=== PATIENT | female | born 1970 | race Caucasian/White ===

== ENCOUNTER 2021-08-22 14:39 | Inpatient (IN) ==
[2021-08-22] MEDS ORDERED: ACETAMINOPHEN 500 MG TAB PO STA (15:32)
--- NOTE | 2021-08-22 16:44 | XRay Report ---
XR chest 2V PA/lateral HISTORY: 50 years-old Female Dyspnea, hypoxia, covid-19 acute shortness of breath with hypoxia. COMPARISON: None TECHNIQUE: Portable AP view of the chest FINDINGS: The cardiac silhouette is upper limits of normal in size. Interstitial coarsening with multifocal phoenix ateral patchy airspace opacities. No pneumothorax or large pleural effusion. No acute fracture. Josselyn cystectomy. IMPRESSION: Multifocal bilateral airspace opacities are suggestive of viral pneumonia. ACT 112: Negative or not required by law. The above report was generated using voice recognition software. It may contain grammatical, syntax o r spelling errors. Electronically signed by: Filemon Bower M.D. 08/22/2021 4:43 PM
[2021-08-22] MEDS ORDERED: SODIUM CHLORIDE 0.9% 1000ML 1,000 ML IV ONE (17:40)
[2021-08-22] MEDS ORDERED: dexAMETHasone**PF** 10 MG/ML VIAL IV ONE (17:47)
[2021-08-22] MEDS ORDERED: BENZONATATE 100 MG CAPSULE PO ONE (17:47)
[2021-08-22] MEDS ORDERED: ONDANSETRON INJ 2 MG/ML 2 ML VIAL IV STA (17:47)
--- NOTE | 2021-08-22 18:02 | Emergency Department Note ---
History of Present Illness General Chief complaint: Shortness of Breath/Dyspnea Stated complaint: covid + as of doc ref low o2 Time Seen by Provider: 08/22/21 17:30 History of Present Illness Maximum Pain Intensity: 7 This 50-year-old female patient presents to the emergency department today at the recommendation of the pharmacy. The patient developed symptoms of COVID-19 last week. She tested positive yesterday. She was seen at the pharmacy today I received monoclonal antibodies, but was referred to the emergency department due to an O2 saturation in the 70%'s. Patient did not receive a COVID-19 vaccine. She has not been taking any medications for her symptoms. She reports nausea, diarrhea, coughing, congestion, runny nose, shortness of breath. She denies chest pain. She did receive monoclonal antibodies at the pharmacy. The patient denies any hemoptysis. She states she has generalized body aches. She reports "I'm really dehydrated. I haven't been able to eat or drink much in 3 days." Allergies Allergy/AdvReac Type Severity Reaction Status Date / Time latex Allergy Intermediate Rash Verified 09/03/18 08:13 Past Med/Surg History Medical History Gestational diabetes Hypertension Surgical History History of bilateral tubal ligation History of cervical cerclage x2 History of section History of cholecystectomy History of colonoscopy History of tooth extraction wisdom teeth Family History (Updated 08/22/21 @ 18:59 by Emily Gallegos PA-C) Father Family history of diabetes mellitus Stroke Social History Smoking Status: Never smoker Second Hand Exposure: Yes (parents smoked); Hx Alcohol Use: No Hx Substance Use: No Preferred Language: Lithuanian Communication Ability: Effective Bevel Face Stoner And Polisher Required: No Beliefs That Will Affect Care: Sikhism Sikhism Beliefs: Mu-Ism Current Living Situation: Spouse and Family Current Living Situation Comment: Lives with and 2 kids Feels Safe at Home: Yes Assistive Devices: Contacts and Glasses Review of Systems A total of 10 systems reviewed and were otherwise negative Physical Exam Vital Signs Vital Signs - 24 hr 08/22/21 14:48 08/22/21 16:40 08/22/21 17:51 Temperature 38.8 C H Temperature Source Temporal Artery Scan Pulse Rate 104 H Respiratory Rate 18 22 25 H Respiratory Effort / Characteristics Labored Respiratory Depth Shallow Respiratory Pattern Tachypnea Blood Pressure 174/69 H Blood Pressure [Right Arm] 165/113 H Blood Pressure Mean 104 Blood Pressure Mean [Right Arm] 130 Blood Pressure Position [Right Arm] Sitting Pulse Oximetry 90 83 L 91 Oxygen Delivery Method Room Air Room Air Nasal Cannula Oxygen Flow Rate 5 Sepsis Recent Fever Within 48 Hours Yes Sepsis New/Unexplained Change in Mental Status N/A Sepsis Action Taken by Nursing Physician Notified 08/22/21 18:00 08/22/21 18:27 08/22/21 19:07 Temperature 38.1 C H Temperature Source Oral Pulse Rate Respiratory Rate 24 Respiratory Effort / Characteristics Respiratory Depth Shallow Respiratory Pattern Blood Pressure Blood Pressure [Right Arm] 198/109 H Blood Pressure Mean Blood Pressure Mean [Right Arm] 138 Blood Pressure Position [Right Arm] Sitting Pulse Oximetry 92 93 Oxygen Delivery Method Nasal Cannula Nasal Cannula Oxygen Flow Rate 5 5 Sepsis Recent Fever Within 48 Hours Sepsis New/Unexplained Change in Mental Status Sepsis Action Taken by Nursing VITALS: Vitals are noted on the nurse's note and reviewed by myself. Patient is febrile, tachycardic, hypertensive. O2 saturation only 87% on 4 L of oxygen via nasal cannula. O2 saturation improved to 91% on 5 L of oxygen via nasal cannula. GENERAL: This is a 50-year-old white female, in no acute distress, nondiaphoretic, well-developed well-nourished. SKIN: The skin was without rashes, erythema, edema, or bruising. There is no tenting of the skin. Capillary refill less than 2 seconds. HEAD: Normocephalic atraumatic. EYES: Conjunctivae without injection, sclerae without icterus. NECK: Supple without nuchal rigidity. No lymphadenopathy. No JVD. HEART: Regular rate and rhythm without murmurs gallops or rubs. LUNGS: Clear to auscultation bilaterally without wheezes, rales or rhonchi. No retractions or accessory muscle use. ABDOMEN: Positive bowel sounds x 4. Soft, nontender, without masses or organomegaly. Tang sign negative. No guarding or rebound tenderness. MUSCULOSKELETAL: No muscle atrophy, erythema, or edema noted. Full range of motion without joint tenderness in all extremities. No tenderness to palpation. Normal gait. Strength 5/5 throughout. NEURO: Patient was alert and oriented to person place and time. No focal neurological deficits. Course Course Due to high volume, high acuity in the emergency department in the setting of the COVID-19 pandemic, critical pathways initiated. Patient was placed on oxygen by nursing staff while in the waiting room awaiting a bed. Chest x-ray performed reviewed by myself and radiologist as noted. The patient was seen and evaluated as above. Patient is now on 5 L of oxygen via nasal cannula. An order was placed for continuous cardiac monitoring. The monitor shows a sinus tachycardia rhythm at a rate of 102 bpm. IV access obtained, labs drawn. Patient hydrated with IV fluids. She was medicated with IV Dexamethasone, zofran, benzonatate. Labs reviewed by myself. I discussed the findings and recommendation for admission with the patient at bedside. I discussed case with the trading manager I discussed the case with the [facility] hospitalist, Emily Gallegos PA-C. They did agree to see and evaluate the patient. Administered Medications Discontinued Medications Acetaminophen (Acetaminophen 500 Mg Tab) 1,000 mg PO NOW STA Stop: 08/22/21 15:33 Last Admin: 08/22/21 18:26 Dose: 1,000 mg Documented by: [id number] Benzonatate (Benzonatate 100 Mg Capsule) 200 mg PO NOW ONE Stop: 08/22/21 17:48 Last Admin: 08/22/21 18:11 Dose: 200 mg Documented by: [id number] Dexamethasone Sodium Phosphate (DexamethasonePf 10 Mg/Ml Vial) 6 mg IV NOW ONE Stop: 08/22/21 17:48 Last Admin: 08/22/21 18:10 Dose: 6 mg Documented by: [id number] Sodium Chloride (Nss 1000ml) 1,000 mls @ 999 mls/hr IV .Q1H1M ONE Stop: 08/22/21 18:40 Last Admin: 08/22/21 18:11 Dose: 999 mls/hr Documented by: [id number] Ondansetron HCl (Ondansetron Inj 2 Mg/Ml 2 Ml Vial) 4 mg IV NOW STA Stop: 08/22/21 17:48 Last Admin: 08/22/21 18:11 Dose: 4 mg Documented by: [id number] Medical Decision Making Differential Diagnosis COVID-19, reactive airway disease, pneumonia, pneumothorax, COPD, CHF, infections, cardiac ischemia, pulmonary embolism, musculoskeletal, gastro intestinal, as well as other pathologies. Medical Records Attestation: I reviewed the patient's medical records. Home Medications Current Medication List: was personally reviewed by me Laboratory Data Attestation: I reviewed the patient's lab results. No leukocytosis, anemia, thrombocytopenia. Renal function and electrolytes w ithout significant abnormality. Transaminases elevated. Procalcitonin 0.12. Result diagrams: 08/22/21 18:10 08/22/21 18:10 Lab Results 08/22/21 08/22/21 08/22/21 Range/Units 18:00 18:10 18:10 WBC 5.81 (4.8-10.8) K/uL RBC 4.66 (4.2-5.4) M/uL Hgb 14.2 (12.0-16.0) g/dL Hct 42.2 (37-47) % MCV 90.6 (80-100) fL MCH 30.5 (25-34) pg MCHC 33.6 (32-36) g/dL RDW Std Deviation 43.2 (36.4-46.3) fL RDW Coeff of Amanda 13.1 (11.5-14.5) % Plt Count 207 (130-400) K/uL MPV 9.9 (7.4-10.4) fL Immature Gran % (Auto) 0.2 % Neut % (Auto) 71.6 % Lymph % (Auto) 21.3 % [place] % (Auto) 6.7 % Eos % (Auto) 0.0 % Baso % (Auto) 0.2 % Neut # (Auto) 4.16 (1.4-6.5) K/uL Lymph # (Auto) 1.24 (1.2-3.4) K/uL [place] # (Auto) 0.39 (0.11-0.59) K/uL Eos # (Auto) 0.00 (0-0.5) K/uL Baso # (Auto) 0.01 (0-0.2) K/uL Immature Gran # (Auto) 0.01 (0.00-0.02) K/uL D-Dimer 680 H* (0-500) ug/L FEU Sodium 133 L (136-145) mmol/L Potassium 3.3 L (3.5-5.1) mmol/L Chloride 99 (98-107) mmol/L Carbon Dioxide 26 (21-32) mmol/L Anion Gap 8.0 (3-11) BUN 8 (7-18) mg/dl Creatinine 0.66 (0.6-1.2) mg/dl Est Cr Clr Drug Dosing 125.4 ml/min Est GFR ( Amer) 120.2 ml/min Est GFR (Non-Af Amer) 103.7 ml/min BUN/Creatinine Ratio 12.5 (10-20) Glucose 139 H (70-99) mg/dl Calcium 9.2 (8.5-10.1) mg/dl Magnesium 1.7 L (1.8-2.4) mg/dl Total Bilirubin 0.3 (0.2-1) mg/dl AST 154 H (15-37) U/L ALT 110 H (12-78) Alkaline Phosphatase 66 (45-117) U/L Total Protein 8.2 (6.4-8.2) gm/dl Albumin 3.1 L (3.4-5.0) gm/dl Globulin 5.1 H (2.5-4.0) gm/dl Albumin/Globulin Ratio 0.6 L (0.9-2) Procalcitonin (0-0.5) ng/ml 08/22/21 Range/Units 18:10 WBC (4.8-10.8) K/uL RBC (4.2-5.4) M/uL Hgb (12.0-16.0) g/dL Hct (37-47) % MCV (80-100) fL MCH (25-34) pg MCHC (32-36) g/dL RDW Std Deviation (36.4-46.3) fL RDW Coeff of Amanda (11.5-14.5) % Plt Count (130-400) K/uL MPV (7.4-10.4) fL Immature Gran % (Auto) % Neut % (Auto) % Lymph % (Auto) % [place] % (Auto) % Eos % (Auto) % Baso % (Auto) % Neut # (Auto) (1.4-6.5) K/uL Lymph # (Auto) (1.2-3.4) K/uL [place] # (Auto) (0.11-0.59) K/uL Eos # (Auto) (0-0.5) K/uL Baso # (Auto) (0-0.2) K/uL Immature Gran # (Auto) (0.00-0.02) K/uL D-Dimer (0-500) ug/L FEU Sodium (136-145) mmol/L Potassium (3.5-5.1) mmol/L Chloride (98-107) mmol/L Carbon Dioxide (21-32) mmol/L Anion Gap (3-11) BUN (7-18) mg/dl Creatinine (0.6-1.2) mg/dl Est Cr Clr Drug Dosing ml/min Est GFR ( Amer) ml/min Est GFR (Non-Af Amer) ml/min BUN/Creatinine Ratio (10-20) Glucose (70-99) mg/dl Calcium (8.5-10.1) mg/dl Magnesium (1.8-2.4) mg/dl Total Bilirubin (0.2-1) mg/dl AST (15-37) U/L ALT (12-78) Alkaline Phosphatase (45-117) U/L Total Protein (6.4-8.2) gm/dl Albumin (3.4-5.0) gm/dl Globulin (2.5-4.0) gm/dl Albumin/Globulin Ratio (0.9-2) Procalcitonin 0.12 (0-0.5) ng/ml Imaging Data Radiologist's Impression: Chest X-Ray 08/22/21 15:29 XR chest 2V PA/lateral HISTORY: 50 years-old Female Dyspnea, hypoxia, covid-19 acute shortness of breath with hypoxia. COMPARISON: None TECHNIQUE: Portable AP view of the chest FINDINGS: The cardiac silhouette is upper limits of normal in size. Interstitial coarsening with multifocal bilateral patchy airspace opacities. No pneumothorax or large pleural effusion. No acute fracture. Cholecystectomy. IMPRESSION: Multifocal bilateral airspace opacities are suggestive of viral pneumonia. ACT 112: Negative or not required by law. The above report was generated using voice recognition software. It may contain grammatical, syntax or spelling errors. Electronically signed by: Filemon Bower M.D. 08/22/2021 4:43 PM ECG Data Attestation: I personally reviewed and interpreted this ECG as follows: Indication: + SOB/dyspnea Rate (beats per minute): 98 Rhythm: + normal sinus ECG [place]: + Normal ECG ST segments: no ST depression, no ST elevation or no T-wave inversions Comparison ECG Date: no prior available Blood Pressure Blood Pressure Findings: Elevated blood pressure Blood Pressure Disposition: further management by hospitalist MDM Narrative This 50-year-old female patient presents to the emergency department today at the recommendation of the pharmacist after receiving COVID-19 monoclonal antibodies. The patient has been symptomatic since last . She tested positive for COVID-19. She has not vaccinated. She was found to be hypoxic on room air. She notes O2 saturation in the 70s at the pharmacy. O2 saturation in the 80s on room air upon arrival to the ED. Patient did require about 5 L of oxygen to keep her O2 saturation on above 90% while in the emergency department. She will be admitted to the [facility] service. Please see their dictation regarding ongoing management and care of this patient. The chart was completed utilizing [employer] Speech voice recognition software. Grammatical errors, random word insertions, pronoun errors, and incomplete se ntences are an occasional consequence of this system due to software limitations, ambient noise, and hardware issues. Any formal questions or concerns about the content, text, or information contained within the body of this dictation should be directly addressed to the provider for clarification. Impression & Plan COVID-19, Hypoxia, Nausea, Tachycardia, Hypertension Discharge Plan Visit Data Chief Complaint: Shortness of Breath/Dyspnea Stated Complaint: covid + as of doc ref low o2 ED Provider: Percy Montanez ED Midlevel Provider: Becky Lino Discharge Problem: COVID-19, Hypoxia, Nausea, Tachycardia, Hypertension Patient Disposition: Admitted As Inpatient Forms Stand Alone Forms: My [facility] Referrals Referrals: Alivia Courtney DO [Primary Care Provider] -
[2021-08-22] MEDS ORDERED: ACETAMINOPHEN 1000 MG/100 ML IV IV ONE (18:20)
[2021-08-22] MEDS ORDERED: ACETAMINOPHEN 500 MG TAB ONE (18:24)
[2021-08-22 18:25] LABS: Hematocrit (blood only) 42.2 % (37-47); Hemoglobin 14.2 g/dL (12.0-16.0); Mean Corpuscular Hemoglobin 30.5 pg (25-34); Mean Corpuscular Hgb Conc 33.6 g/dL (32-36); Mean Corpuscular Volume 90.6 fL (80-100); Mean Platelet Volume 9.9 fL (7.4-10.4); Platelet Count 207 K/uL (130-400); RDW Coefficient of Variation 13.1 % (11.5-14.5); RDW Standard Deviation 43.2 fL (36.4-46.3); Red Blood Count 4.66 M/uL (4.2-5.4); White Blood Count 5.81 K/uL (4.8-10.8)
--- NOTE | 2021-08-22 18:26 | History & Physical Report ---
Date of Service August 22, 2021 Assessment & Plan (1) Hypoxia: (2) COVID-19: Plan: This is a 50yo F with a PMH of obesity presents from the pharmacy after being found to be hypoxic in the setting of covid (positive covid test yesterday, 08/21/21). Symptomatic for 5 days, received monoclonal antibodies at pharmacy today, found to be hypoxic in 70s and directed to ED for further evaluation CXR with Multifocal bilateral airspace opacities are suggestive of viral pneumonia. Febrile at 38.1 C, saturating at 93% on 5 L NC, d-dimer 680, procal WNL. AST 154, ALT 110 Will obtain ABG, chest CTA Covid isolation precautions Continue IV dexamethasone, initiating remdesivir Monitor daily CMP, CBC, continue supplemental O2 (3) Hypokalemia: (4) Hypomagnesemia: Plan: In setting of GI losses. Replacing. Repeat labs in AM (5) Nausea and vomiting: Plan: In setting of covid 19. Continue antiemetics PRN, IV fluid resuscitation, clear liquid diet and advance as tolerated (6) Hypertension: Plan: Not on home medications. Repeating manual BP, will add antihypertensives as needed DVT Ppx: SQ lovenox Code status: FULL PCP: Fidelia Courtney Dispo: Admit to PCU Patient seen in collaboration with Dr. King. Please see addendum. History of Present Illness Chief Complaint: covid, hypoxia Primary Care Provider: Alivia Courtney, DO This is a 50yo F with a PMH of obesity presents from the pharmacy after being found to be hypoxic in the setting of covid (positive covid test yesterday, 08/21/21). was diagnosed with Covid last week and patient has been symptomatic for 5 days, starting with nausea, vomiting and diarrhea. Also endorses fever (tmax 101 F), chills, body aches, cough, congestion, runny nose and shortness of breath. Has had difficulty keeping anything down for 3 days despite trying to drink Gatorade. Did receive monoclonal antibodies at the pharmacy today. Oxygen saturation was in the 70s and patient was sent to ED for further evaluation. Does not take any home medications. Did not receive Covid vaccine. Denies lightheadedness, chest pain, palpitations, dysuria, diarrhea or constipation. Allergies Allergy/AdvReac Type Severity Reaction Status Date / Time latex Allergy Intermediate Rash Verified 08/22/21 19:24 Home Medications Medication Instructions Recorded Confirmed Type No Known Home Medications 08/22/21 08/22/21 History Past Med/Surg History Medical History Gestational diabetes Hypertension Surgical History History of bilateral tubal ligation History of cervical cerclage x2 History of section History of cholecystectomy History of colonoscopy History of tooth extraction wisdom teeth Family History (Updated 08/22/21 @ 18:59 by Emily Gallegos PA-C) Father Family history of diabetes mellitus Stroke Social History Smoking Status: Never smoker Second Hand Exposure: Yes (parents smoked); Hx Alcohol Use: No Hx Substance Use: No Preferred Language: Kosovan Communication Ability: Effective Emergency Services Dispatcher Required: No Beliefs That Will Affect Care: Sikh Sikh Beliefs: Alevism Current Living Situation: Spouse and Family Current Living Situation Comment: Lives with and 2 kids Feels Safe at Home: Yes Assistive Devices: Contacts and Glasses Review of Systems Review of Systems: At least ten systems reviewed and negative except as noted in the HPI. Physical Exam Physical Exam: Please see Dr. King's addendum for physical exam. Results & Data Results & Data ([facility]) Vital Signs (Past 12 Hours) Vital Signs Temp Pulse Resp BP BP Pulse Ox 08/22/21 18:00 24 198/109 H 92 08/22/21 17:51 25 H 91 08/22/21 16:40 22 165/113 H 83 L 08/22/21 14:48 38.8 C H 104 H 18 174/69 H 90 Laboratory Results Short CBC 08/22/21 Range/Units 18:10 WBC 5.81 (4.8-10.8) K/uL Hgb 14.2 (12.0-16.0) g/dL Hct 42.2 (37-47) % Plt Count 207 (130-400) K/uL BMP 08/22/21 18:10 Sodium 133 L Potassium 3.3 L Chloride 99 Carbon Dioxide 26 BUN 8 Creatinine 0.66 Glucose 139 H Calcium 9.2 Liver Function 08/22/21 Range/Units 18:10 Total Bilirubin 0.3 (0.2-1) mg/dl AST 154 H (15-37) U/L ALT 110 H (12-78) Alkaline Phosphatase 66 (45-117) U/L Albumin 3.1 L (3.4-5.0) gm/dl Diagnostic Findings Chest X-Ray 08/22/21 15:29 XR chest 2V PA/lateral HISTORY: 50 years-old Female Dyspnea, hypoxia, covid-19 acute shortness of breath with hypoxia. COMPARISON: None TECHNIQUE: Portable AP view of the chest FINDINGS: The cardiac silhouette is upper limits of normal in size. Interstitial coarsening with multifocal bilateral patchy airspace opacities. No pneumothorax or large pleural effusion. No acute fracture. Cholecystectomy. IMPRESSION: Multifocal bilateral airspace opacities are suggestive of viral pneumonia. ACT 112: Negative or not required by law. The above report was generated using voice recognition software. It may contain grammatical, syntax or spelling errors. Electronically signed by: Filemon Bower M.D. 08/22/2021 4:43 PM Supervising Physician Co-Signing Physician Notes Pt is a 50 y/o F with hx of obesity and elevated BP admitted for COVID pneumonia with hypoxia -pt received monoclonal antibody today @ [facility] and she was sent to the ER for hypoxia Exam: -Mild respiratory distress, NC in place -Lungs: B/L diffuse rales -Cardiac: normal S1/S2, no murmur -Abd: ND, NT, soft -MSk: no LE edema -Psych: AAOx3 and normal Affect A/P: COVID pneumonia with hypoxia: -Tested positive for COVID on: 08/21/21 - symptoms onset on: 08/17/21 -CTA chest pending & d-dimer is elevated -Procal: neg -normal crcl and LFTs are elevated --- will trend CMP -will start the pt on Remdesivir and Dexamethasone -continue on oxygen supplement right now -encourage frequent change of position (including proning) -daily CMP and CRP - repleted electrolytes Agree with A/P by Emily Gallegos PA-C
[2021-08-22 18:43] LABS: Basophils # (auto) 0.01 K/uL (0-0.2); Basophils % (auto) 0.2 %; Immature Granulocytes # (auto) 0.01 K/uL (0.00-0.02); Immature Granulocytes % (auto) 0.2 %; Lymphocytes # (auto) 1.24 K/uL (1.2-3.4); Lymphocytes % (auto) 21.3 %; Monocytes # (auto) 0.39 K/uL (0.11-0.59); Monocytes % (auto) 6.7 %; Neutrophils # (auto) 4.16 K/uL (1.4-6.5); Neutrophils % (auto) 71.6 %
[2021-08-22 18:47] LABS: D Dimer 680 ug/L FEU (0-500)
[2021-08-22] MEDS ORDERED: REMDESIVIR 200 MG in SODIUM CHLORIDE 0.9% 210 ML IV STA (18:48)
[2021-08-22 18:54] LABS: Albumin Level 3.1 gm/dl (3.4-5.0); BUN Creatinine Ratio 12.5 (10-20); Calcium 9.2 mg/dl (8.5-10.1); Creatinine Clr Calc Pharmacy 125.4 ml/min; Est GFR (African American) 120.2 ml/min; Est GFR (Non-African American) 103.7 ml/min; Magnesium 1.7 mg/dl (1.8-2.4); Potassium 3.3 mmol/L (3.5-5.1)
[2021-08-22 18:56] LABS: Albumin Globulin Ratio 0.6 (0.9-2); Bilirubin,Total 0.3 mg/dl (0.2-1); Globulin 5.1 gm/dl (2.5-4.0); Total Protein 8.2 gm/dl (6.4-8.2)
[2021-08-22] MEDS ORDERED: MAGNESIUM SULFATE / D5W 1 GM/100 ML BAG IV ONE (19:00)
[2021-08-22 19:10] LABS: Base Excess ABG 2.2 mEq/L (-9-1.8); HCO3 ABG 25 mmol/L (19-24); Oxygen Saturation ABG 95.5 % (90-95); PCO2 ABG 35 mmHg (35-46); PO2 ABG 73 mmHg (80-95); pH ABG 7.48 (7.35-7.45)
[2021-08-22 19:12] LABS: Allen Test POS (Pos)
[2021-08-22] MEDS ORDERED: POTASSIUM CHLORIDE 40 MEQ in SODIUM CHLORIDE 0.9% 1000ML 1,000 ML IV SCH (19:15)
[2021-08-22 20:06] LABS: Influenza A virus by PCR Negative (Neg); Influenza B virus by PCR Negative (Neg); RSV by PCR Negative (Neg)
[2021-08-22 20:09] LABS: SARS CoV2 RNA(COVID-19) InHosp POSITIVE (Negative)
[2021-08-22] MEDS ORDERED: OPTIRAY 320 125ml IV ONE (20:55)
[2021-08-22] MEDS ORDERED: ONDANSETRON INJ 2 MG/ML 2 ML VIAL IV PRN (21:43)
[2021-08-22] MEDS ORDERED: POLYETHYLENE (MIRALAX) 17 GM PACK PO PRN (21:43)
[2021-08-22 23:03] LABS: Appearance Urine Clear (Clear); Bacteria Urine Automated Negative (Negative); Bilirubin Urine Negative (Negative); Blood Urine 2+ (Negative); Cast Urine Automated 0 /lpf (0-5); Color Urine Yellow; Glucose Urine UA 1+ (Negative); Ketones Urine 2+ (Negative); Leukocyte Esterase Urine Negative (Negative); Nitrite Urine Negative (Negative); Protein Urine Negative (Negative); RBC Urine Automated 0-4 /hpf (0-4); Specific Gravity Urine > 1.045 (1.000-1.030); Urobilinogen Urine Negative (Negative)
[2021-08-22] MEDS ORDERED: ONDANSETRON INJ 2 MG/ML 2 ML VIAL ONE (23:12)
[2021-08-22] MEDS: SODIUM CHLORIDE 0.9% 10ML FLUSH IV SCH (23:19)
[2021-08-23] MEDS: ENOXAPARIN INJ 40 MG/0.4 ML SYR SQ SCH ×2 (00:11→21:44)
[2021-08-23 05:33] LABS: Hematocrit (blood only) 39.4 % (37-47); Mean Corpuscular Hemoglobin 30.2 pg (25-34); Mean Corpuscular Volume 91.6 fL (80-100); Mean Platelet Volume 9.9 fL (7.4-10.4); Platelet Count 207 K/uL (130-400); RDW Coefficient of Variation 13.2 % (11.5-14.5); RDW Standard Deviation 44.4 fL (36.4-46.3); White Blood Count 4.82 K/uL (4.8-10.8)
[2021-08-23 06:24] LABS: Albumin Globulin Ratio 0.5 (0.9-2); Albumin Level 2.4 gm/dl (3.4-5.0); BUN Creatinine Ratio 14.6 (10-20); Bilirubin,Total 0.2 mg/dl (0.2-1); Calcium 8.2 mg/dl (8.5-10.1); Est GFR (African American) 126.2 ml/min; Est GFR (Non-African American) 108.9 ml/min; Globulin 4.7 gm/dl (2.5-4.0); Total Protein 7.1 gm/dl (6.4-8.2)
--- NOTE | 2021-08-23 08:05 | CT Scan Report ---
CT angio chest PE protocol CT DOSE: 702.04 mGy.cm HISTORY: 50 years-old Female with PE. Acute shortness of breath. COVID Positive. TECHNIQUE: Multiple CTA images of the chest were obtained after the intravenous administration of 120 ml Optiray. Coronal and sagittal MIPS were obtained from the axial data set and were submitted for review. All measurements were obtained according to NASCET criteria. A dose lowering technique was u tilized adhering to the principles of ALARA. COMPARISON: Chest radiographs of same day FINDINGS: CTA: The heart is normal in size without pericardial effusion. Mild coronary artery calcifications. No tho racic aortic aneurysm or dissection. Unremarkable pulmonary artery. No pulmonary emboli. CT CHEST: 10 mm hypodense nodule of the inferior right thyroid lobe medially. No pathologically enlarged lymph nodes. Mildly prominent mediastinal and hilar lymph nodes are likely reactive. The inferior lung base s are only partially imaged. There is no pneumothorax or pleural effusion. Multifocal bilateral inter mixed groundglass and consolidative opacities are noted within all lobes bilaterally. Central airways are patent. Hepatic steatosis. Tiny hiatal hernia. Unremarkable soft tissues. No acute fracture. Left shoulder ro tator cuff calcific tendinosis. IMPRESSION: 1. No pulmonary emboli. 2. Extensive multifocal viral pneumonia. 3. Mild coronary artery calcifications. 4. Hepatic steatosis. ACT 112: Negative or not required by law. The above report was generated using voice recognition software. It may contain grammatical, syntax o r spelling errors. Electronically signed by: Filemon Bower M.D. 08/23/2021 8:04 AM
[2021-08-23] MEDS: dexAMETHasone 6 MG in SYRINGE 0 ML IV SCH (10:17)
--- NOTE | 2021-08-23 15:43 | Electrocardiogram Report ---
Test Reason : Blood Pressure : / mmHG Vent. Rate : 098 BPM Atrial Rate : 098 BPM P-R Int : 132 ms QRS Dur : 082 ms QT Int : 350 ms P-R-T Axes : -03 005 019 degrees QTc Int : 446 ms Poor data quality, interpretation may be adversely affected Normal sinus rhythm Normal ECG No previous ECGs available Confirmed by Facundo Pope ([id number]) on 08/23/2021 3:42:30 PM Referred By: REFERRED SELF Confirmed By:Facundo Pope
--- NOTE | 2021-08-23 19:31 | Hospitalist Progress Note ---
Date of Service August 23, 2021 Assessment & Plan (1) Hypoxia: (2) COVID-19: Plan: This is a 50yo F with a PMH of obesity presents from the pharmacy after being found to be hypoxic in the setting of covid (positive covid test 08/21/21). Symptomatic for 5 days [employer]ER, received monoclonal antibodies at pharmacy on the day of arrival, found to be hypoxic in 70s and directed to ED for further evaluation CXR with Multifocal bilateral airspace opacities are suggestive of viral pneumonia. At presentation, febrile at 38.1 C, saturating at 93% on 5 L NC, d-dimer 680, procal WNL. AST 154, ALT 110 CTA chest negative for pulmonary embolism. Covid isolation precautions Continue IV dexamethasone 08/22, continue remdesivir 10/23 Monitor daily CMP, CBC, continue supplemental O2 (3) Hypokalemia: (4) Hypomagnesemia: Plan: In setting of GI losses. Monitor and replete as appropriate (5) Nausea and vomiting: Plan: In setting of covid 19. Continue antiemetics PRN, IV fluid resuscitation, clear liquid diet and advance as tolerated (6) Hypertension: Plan: Not on home medications. Continue with antihypertensives as needed DVT Ppx: SQ lovenox Code status: FULL PCP: Fidelia Courtney Dispo: Admit to PCU Admission and Anticipated Discharge Date Admission Date: August 22, 2021 Subjective Patient was standing beside her bed, on 14 liters oxygen via oxygen mask. NAD, no new acute events overnight. Patient reports eating better but diarrhea is same. Patient was working in her laptop prior to my arrival. Patient denies fever/chills/chest pain/palpitation/increased shortness of breath/other review of symptoms. Physical Exam Physical Exam: GENERAL: Alert and oriented x3. NAD, on 14 L via oxygen mask HEENT: No pallor, no icterus. Pupils equal, round and reactive to light. Oral mucosa moist. NECK: No JVD, no neck masses. HEART: S1 and S2 heard. Regular rate and rhythm. No murmur, no gallop. RESPIRATORY SYSTEM: Normal AP diameter. No accessory muscle use. No wheezing, bilateral crackles and decreased breath sounds appreciated ABDOMEN: Soft, bowel sounds present, nontender, no distention. CENTRAL NERVOUS SYSTEM: No facial droop. Speech is clear. Obeys simple commands. Moves extremities. EXTREMITIES: No edema, no erythema seen. Results & Data Results & Data ([facility]) Vital Signs (Past 12 Hours) Vital Signs Pulse Resp Pulse Ox 08/23/21 08:30 80 27 H 86 L 08/23/21 08:15 82 29 H 85 L 08/23/21 08:00 84 27 H 92 08/23/21 07:45 85 21 90 08/23/21 07:30 79 20 91
[2021-08-23] MEDS: REMDESIVIR 100 MG in SODIUM CHLORIDE 0.9% 230 ML IV SCH (19:56)
[2021-08-23] MEDS ORDERED: LOPERAMIDE HCL 2 MG CAP PO STA (20:25)
[2021-08-23] MEDS: SODIUM CHLORIDE 0.9% 10ML FLUSH IV SCH (20:56)
[2021-08-24] MEDS: dexAMETHasone 6 MG in SYRINGE 0 ML IV SCH (08:01)
[2021-08-24 08:11] LABS: Hematocrit (blood only) 40.4 % (37-47); Hemoglobin 13.1 g/dL (12.0-16.0); Mean Corpuscular Hemoglobin 30.5 pg (25-34); Mean Corpuscular Hgb Conc 32.4 g/dL (32-36); Mean Corpuscular Volume 94.2 fL (80-100); Mean Platelet Volume 10.1 fL (7.4-10.4); Platelet Count 278 K/uL (130-400); RDW Coefficient of Variation 13.3 % (11.5-14.5); RDW Standard Deviation 45.9 fL (36.4-46.3); Red Blood Count 4.29 M/uL (4.2-5.4)
[2021-08-24 08:35] LABS: Albumin Level 2.7 gm/dl (3.4-5.0); BUN Creatinine Ratio 24.4 (10-20); C Reactive Protein 5.63 mg/dl (0-0.29); Calcium 8.3 mg/dl (8.5-10.1); Est GFR (Non-African American) 112.2 ml/min; Potassium 3.5 mmol/L (3.5-5.1)
[2021-08-24 08:37] LABS: Albumin Globulin Ratio 0.6 (0.9-2); Bilirubin,Total 0.6 mg/dl (0.2-1); Globulin 4.5 gm/dl (2.5-4.0); Total Protein 7.2 gm/dl (6.4-8.2)
--- NOTE | 2021-08-24 08:55 | XRay Report ---
XR chest 1V portable CLINICAL HISTORY: increasing O2 requirement. TECHNIQUE: Single frontal radiograph of the chest was obtained. Comparison: Comparison is made to chest one view 08/22/2021 FINDINGS: No lines and tubes are seen. The cardiomediastinal silhouette is normal. Multifocal airspace opacitie s are seen. No evidence of pleural effusion or pneumothorax. IMPRESSION: Multifocal airspace opacities may represent atelectasis, pneumonia, and/or aspiration. ACT 112: Negative or not required by law. Electronically signed by: Robert House M.D. 08/24/2021 8:53 AM
[2021-08-24] MEDS ORDERED: POTASSIUM CHLORIDE CRTAB 20 MEQ TABCR PO STA (09:32)
[2021-08-24] MEDS ORDERED: FUROSEMIDE INJ 20 MG/2 ML VIAL IV ONE (09:32)
--- NOTE | 2021-08-24 15:28 | Hospitalist Progress Note ---
Date of Service August 24, 2021 Assessment & Plan (1) Hypoxia: (2) COVID-19: Plan: This is a 50yo F with a PMH of obesity presents from the pharmacy after being found to be hypoxic in the setting of covid (positive covid test 08/21/21). 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 At presentation, febrile at 38.1 C, saturating at 93% on 5 L NC, d-dimer 680, procal WNL. AST 154, ALT 110. Admitting procal negative CTA chest negative for pulmonary embolism. Covid isolation precautions BNP 08/24 --> 225, strict Is and O2, lasix as needed, one dose of lasix today 08/24 CRP 5.63 08/24 CXR worsening compared to admitting CXR. Continue IV dexamethasone 08/22, continue remdesivir 10/23 , incentive/flutter valve and proning Monitor daily CMP, CBC, continue supplemental O2 08/24 AM: Upon discussion about further interventions like CPAP/BPAP/possible i ntubation, patient denied to discuss and will discuss only when the need arises so. Patient made aware that she is already at maximal level of high flow oxygen we can give, she says she feels fine and wants to make sure that she will do better with high flow as of now. It is clear from discussion that definitely patient would like to continue those intervention if needed but did not say so explicitly. Patient has said similarly to the RN taking care of her as well. I asked patient if she wants me to call any of her family members to update, patient was reluctant and said to wait for now. ---> Patient changed her mind during the evening and asked to update her [id number] Dr. Taveras [[facility] --- [phone]]. I called Dr. Taveras, updated him about her status and plan of care. Answered all his questions. He voiced understanding and was agreeable to plan of care. (3) Hypokalemia: (4) Hypomagnesemia: Plan: In setting of GI losses. Monitor and replete as appropriate (5) Nausea and vomiting: Plan: In setting of covid 19. Continue antiemetics PRN, IV fluid resuscitation, clear liquid diet and advance as tolerated Improving (6) Hypertension: Plan: Not on home medications. Continue with antihypertensives as needed DVT Ppx: SQ lovenox Code status: FULL PCP: Fidelia Courtney Dispo: Admit to PCU Admission and Anticipated Discharge Date Admission Date: August 22, 2021 Subjective Patient was standing beside her bed, on 60L O2 HFNC. NAD, overnight patient desaturated while being moved to Covid unit requiring 60 L high flow nasal cannula. Patient reports eating better but diarrhea improving (pt had taken loperamide yesterday evening). Patient denies fever/chills/chest pain/palpitation/increased shortness of breath/other review of symptoms. Physical Exam Physical Exam: GENERAL: Alert and oriented x3. NAD, on 60L via HFNC HEENT: No pallor, no icterus. Pupils equal, round and reactive to light. Oral mucosa moist. NECK: No JVD, no neck masses. HEART: S1 and S2 heard. Regular rate and rhythm. No murmur, no gallop. RESPIRATORY SYSTEM: Normal AP diameter. No accessory muscle use. No wheezing, bilateral crackles and decreased breath sounds appreciated ABDOMEN: Soft, bowel sounds present, nontender, no distention. CENTRAL NERVOUS SYSTEM: No facial droop. Speech is clear. Obeys simple commands. Moves extremities. EXTREMITIES: No edema, no erythema seen. Results & Data Results & Data ([facility]) Vital Signs (Past 12 Hours) Vital Signs Temp Pulse Pulse Resp BP Pulse Ox 08/24/21 15:15 36.7 C 76 18 144/87 H 92 08/24/21 15:07 91 H 20 91 08/24/21 11:40 92 H 18 91 08/24/21 11:28 37.2 C 87 129/87 08/24/21 08:00 85 08/24/21 07:54 86 18 93 08/24/21 07:10 36.9 C 81 20 138/80 95 08/24/21 03:33 36.7 C 83 18 148/96 H 90
--- NOTE | 2021-08-24 19:02 | Pulmonary Consultation ---
Date of Consultation August 24, 2021 Assessment & Plan (1) COVID-19: (2) Acute respiratory failure with hypoxia: (3) DVT prophylaxis: Attending: Dr. Solomon Impression: Is a 50-year-old female that is nonvaccinated. She has symptoms starting 7 days ago. She is receiving dexamethasone as well as remdesivir. She is not a candidate for baricitinib or tocilizumab as her CRP is only 5.63. Patient is on high flow supplemental oxygen at 60 L/min and FiO2 of 100% with no distress with the supplemental oxygen. proBNP is 255. She has no evidence of hypercapnia on ABG or serum CO2. Recommendations: 1. COVID-19: * Chest x-ray with multifocal opacities consistent with viral pneumonia * CTA chest with no evidence of pulmonary embolus * Patient started on dexamethasone as well as remdesivir. * Patient reportedly had "monoclonal antibodies" at a homeopathic pharmacy in [facility]. These were administered by injection of the arms and abdomen * Patient resistant to endotracheal intubation and mechanical ventilation * If patient should decline, will need to have further discussion regarding progression of care to include mechanical ventilation * Continue to encourage self proning * No history of pulmonary disease including asthma or other pulmonary issues. 2. Acute respiratory failure with hypoxia: * This appears to be related to COVID-19/ARDS * No evidence of hypercapnia. Would avoid CPAP or BiPAP if possible. Continue with high flow supplemental oxygen * No cough or sputum production. * Procalcitonin negative is 0.12 * No indication at this time for antibiotics * Patient has not been cultured. If she does develop fever, consider blood cultures x2, sputum culture, as well as urine culture. 3. DVT prophylaxis: * CTA of the chest negative for PE * No asymmetrical edema * Continue with enoxaparin 40 mg subcutaneously daily Thank you very much for including us in the care of this patient. We will continue to follow at this time. Please refer to Dr. Solomon's addendum for further recommendations and corrections. History of Present Illness Reason for Consultation: Covid19 with acute respiratory failure with hypoxia and no evidence of hypercapnia. Attending Physician: Brandon Matias MD History of Present Illness Attending: Dr. Solomon This is a 50-year-old female with no significant past medical history or home medications. The patient states that she began with symptoms 08/16/2021. She is unvaccinated. She went to a pharmacy in [facility] and received "monoclonal antibody" injections in the arms and abdomen. At the pharmacy, she was noted to have SaO2 of 70%. She was advised to go to the nearest emergency department. She did not want to go to [facility] so they drove back to [place] where she was evaluated at [facility] and admitted. She was placed on high flow oxygen and continues to require supplemental oxygen at high doses. She is afebrile. She states that she has no nausea or vomiting. She has no back pain. She denies any diarrhea. She still has taste and smell. She is confident that she will improve without further intervention. We did have long discussion about progression of COVID-19 and acute respiratory distress syndrome. She is aware that if she does not improve that we do not have any other medical options other than mechanical ventilation. At this time she elects not to be ventilated although she is listed as a full code. I did discuss CODE STATUS with her and at this time she would like to think further about progression of treatment. She is and lives at home with her . The patient reports that she is not vaccinated. She states that she has no past tobacco abuse history. Allergies Allergy/AdvReac Type Severity Reaction Status Date / Time latex Allergy Intermediate Rash Verified 08/22/21 19:24 Home Medications Medication Instructions Recorded Confirmed Type No Known Home Medications 08/22/21 08/22/21 History Patient History Medical History Gestational diabetes Hypertension Surgical History History of bilateral tubal ligation History of cervical cerclage x2 History of section History of cholecystectomy History of colonoscopy History of tooth extraction wisdom teeth Family History Father Family history of diabetes mellitus Stroke Social History Smoking Status: Never smoker Second Hand Exposure: Yes (parents smoked); Hx Alcohol Use: No Hx Substance Use: No Preferred Language: Bengali Communication Ability: Effective Operations Lead Required: No 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 No conversational dyspnea. Morbidly obese. EYES: No icterus, gaze conjugate NOSE: No evidence of epistaxis. High flow nasal cannula in place and secure MOUTH: No lesions or candidiasis. Mucosa is moist NECK: Supple LUNGS: Decreased breath sounds bilaterally. Patient does have evidence of rales and some scattered bronchospasm. HEART: Regular, rate controlled. No appreciated no ectopy ABDOMEN: Soft, NT, ND, BS Present EXTREMITIES: No LE edema, pedal pulses intact NEURO: A&OX3. No appreciable neurological deficit Results & Data Results & Data ([facility]) Vital Signs (Past 12 Hours) Vital Signs Temp Pulse Pulse Resp BP Pulse Ox 08/24/21 15:15 36.7 C 76 18 144/87 H 92 08/24/21 15:07 91 H 20 91 08/24/21 11:40 92 H 18 91 08/24/21 11:28 37.2 C 87 129/87 08/24/21 08:00 85 08/24/21 07:54 86 18 93 08/24/21 07:10 36.9 C 81 20 138/80 95 Critical Care Results & Data Vital Signs (Past 12 Hours) Vital Signs Temp Pulse Pulse Resp BP Pulse Ox 08/24/21 15:15 36.7 C 76 18 144/87 H 92 08/24/21 15:07 91 H 20 91 08/24/21 11:40 92 H 18 91 08/24/21 11:28 37.2 C 87 129/87 08/24/21 08:00 85 08/24/21 07:54 86 18 93 08/24/21 07:10 36.9 C 81 20 138/80 95 Lab & Micro Results (Past 24 Hours) RBC 4.29 M/uL (4.2-5.4) 08/24/21 WBC 6.70 K/uL (4.8-10.8) 08/24/21 Hgb 13.1 g/dL (12.0-16.0) 08/24/21 Hct 40.4 % (37-47) 08/24/21 MCV 94.2 fL (80-100) 08/24/21 MCH 30.5 pg (25-34) 08/24/21 MCHC 32.4 g/dL (32-36) 08/24/21 RDW Standard Deviation 45.9 fL (36.4-46.3) 08/24/21 RDW Coefficient of Variation 13.3 % (11.5-14.5) 08/24/21 Plt Count 278 K/uL (130-400) 08/24/21 MPV 10.1 fL (7.4-10.4) 08/24/21 Na 141 mmol/L (136-145) 08/24/21 K 3.5 mmol/L (3.5-5.1) 08/24/21 Cl 106 mmol/L (98-107) 08/24/21 CO2 27 mmol/L (21-32) 08/24/21 Anion Gap 8.0 (3-11) 08/24/21 BUN 13 mg/dl (7-18) 08/24/21 Creatinine 0.52 mg/dl (0.6-1.2) L 08/24/21 Estimated GFR ( Amer) 130.0 ml/min 08/24/21 Estimated GFR (Non-Af Amer) 112.2 ml/min 08/24/21 BUN/Creatinine Ratio 24.4 (10-20) H 08/24/21 Glu 156 mg/dl (70-99) H 08/24/21 Ca 8.3 mg/dl (8.5-10.1) L 08/24/21 Total Bilirubin 0.6 mg/dl (0.2-1) 08/24/21 AST 98 U/L (15-37) H 08/24/21 ALT 92 (12-78) H 08/24/21 Alkaline Phosphatase 55 U/L (45-117) 08/24/21 TP 7.2 gm/dl (6.4-8.2) 08/24/21 Albumin 2.7 gm/dl (3.4-5.0) L 08/24/21 Globulin 4.5 gm/dl (2.5-4.0) H 08/24/21 Albumin/Globulin Ratio 0.6 (0.9-2) L 08/24/21 Calcium Level 8.3 mg/dl (8.5-10.1) L 08/24/21 07:05 08/24/21 Diagnostic Findings (Past 24 Hours) Chest X-Ray 08/24/21 08:15 XR chest 1V portable CLINICAL HISTORY: increasing O2 requirement. TECHNIQUE: Single frontal radiograph of the chest was obtained. Comparison: Comparison is made to chest one view 08/22/2021 FINDINGS: No lines and tubes are seen. The cardiomediastinal silhouette is normal. Multifocal airspace opacities are seen. No evidence of pleural effusion or pneumothorax. IMPRESSION: Multifocal airspace opacities may represent atelectasis, pneumonia, and/or aspiration. ACT 112: Negative or not required by law. Electronically signed by: Robert House M.D. 08/24/2021 8:53 AM I & O Totals 24 Hours 08/23/21 08/24/21 08/25/21 06:59 06:59 06:59 Intake Total 2370 / 2370 1510 / 1510 Output Total 200 / 200 1001 / 1001 Balance 2370 / 2370 1310 / 1310 -1001 / -1001 Cumulative 08/22/21 14:39 thru 08/24/21 14:00 Intake Total 3880 Output Total 1201 Balance 2679 RT Ventilator Mngmt (Last Documented) Ventilator Ordered Settings Respiratory Rate 18 08/24/21 15:15 Fraction of Inspired Oxygen 100 08/24/21 15:07 Ventilator - PT Measurements Respiratory Rate 18 PG Care Time/CCT Total # of Minutes Spent Total Time Spent with Patient: Total time spent is greater than 50% in coordination of care (as documented) at patient's floor/unit and/or counseling patient: Coding Level of Care Code 05092 Inpt Consult Level 4 Diagnoses COVID-19 U07.1 Acute respiratory failure with hypoxia J96.01 DVT prophylaxis Z29.9 Time Spent (min) 45
[2021-08-24] MEDS: REMDESIVIR 100 MG in SODIUM CHLORIDE 0.9% 230 ML IV SCH (20:00)
[2021-08-24] MEDS: SODIUM CHLORIDE 0.9% 10ML FLUSH IV SCH (21:10)
[2021-08-24] MEDS: MELATONIN 3 MG TAB PO PRN (22:04)
[2021-08-24] MEDS: ENOXAPARIN INJ 40 MG/0.4 ML SYR SQ SCH (22:04)
[2021-08-25 08:32] LABS: BUN Creatinine Ratio 33.4 (10-20); Calcium 8.5 mg/dl (8.5-10.1); Creatinine Clr Calc Pharmacy 167.6 ml/min; Est GFR (African American) 131.7 ml/min; Est GFR (Non-African American) 113.7 ml/min; Magnesium 2.1 mg/dl (1.8-2.4); Phosphorus 3.3 mg/dl (2.5-4.9); Potassium 3.4 mmol/L (3.5-5.1)
[2021-08-25] MEDS: dexAMETHasone 6 MG in SYRINGE 0 ML IV SCH (08:42)
[2021-08-25] MEDS: ACETAMINOPHEN 325 MG TAB PO PRN (08:50)
--- NOTE | 2021-08-25 09:03 | Pulmonology Progress Note ---
Date of Service August 25, 2021 Assessment & Plan (1) COVID-19: (2) Acute respiratory failure with hypoxia: (3) DVT prophylaxis: Plan: Impression: Is a 50-year-old female that is nonvaccinated. She has symptoms starting 7 days ago. She is receiving dexamethasone as well as remdesivir. She is not a candidate for baricitinib or tocilizumab as her CRP is only 5.63. Patient is on high flow supplemental oxygen at 60 L/min and FiO2 of 100% with no distress with the supplemental oxygen. Recommendations: 1. COVID-19: Unvaccinated patient. Continue dexamethasone 6 mg daily. Given that she is 8 days out, I do not think altering viral replication with remdesivir is going to offer a clinical benefit and will be discontinued at this point time. 2. Acute respiratory failure with hypoxia: Continue high flow with target oxygen saturations at or above 88%. She should continue to self prone as tolerated. If she fails high flow, application of CPAP would be appropriate. If she fails CPAP, proceeding with intubation mechanical ventilation may be necessary. Hopefully we can avoid that. She denies any respiratory fatigue currently. BNP and pro calcitonin were normal. 3. DVT prophylaxis: per ACCP guidelines We will continue to follow with you. Feel free to contact us with questions. Overall prognosis is guarded Admission and Anticipated Discharge Date Admission Date: August 22, 2021 Subjective Patient seen and examined. EMR reviewed. Discussed with critical care HANNAH yesterday and with patient at bedside. The patient reports that she is breathing okay. She is complaining that she is unable to sleep. She states she is not slept in 2 days. She is trying to self prone as much as possible. She remains on max setting high flow. Her work of breathing is acceptable. She states she is able to keep up without any difficulty. She is occasionally coughing and expectorating small amounts of phl egm. She is not having any chest pain. No significant lower extremity edema. Review of Systems Review of Systems: All systems reviewed & are unremarkable except as noted in Subjective Physical Exam Constitutional: WD/WN, vitals as above Neck: trachea midline, no thyromegaly Respiratory: + labored breathing and + tachypneic; no respiratory distress Auscultation: + crackles; no wheezes Cardiovascular: RRR, no murmur, no edema Gastrointestinal (Abdomen): normal bowel sounds, soft, nontender, no he patosplenomegaly Musculoskeletal: Extremities: extremities normal to inspection Skin: no rashes, warm and dry Neurologic: Nonfocal exam Lymphatic: no cervical lymphadenopathy Results & Data Results & Data ([facility]) Vital Signs (Past 12 Hours) Vital Signs Temp Pulse Pulse Resp BP Pulse Ox 08/25/21 07:59 37.4 C 90 23 145/81 H 90 08/25/21 07:08 89 08/25/21 06:38 85 24 95 08/25/21 03:16 86 20 90 08/25/21 03:03 37.4 C 91 H 22 152/95 H 90 08/25/21 01:21 62 08/24/21 23:11 37.4 C 79 20 134/73 92 08/24/21 22:27 93 H 20 89 L Laboratory Results 08/24/21 07:05 08/25/21 07:36 CRP 5.6 Procalcitonin 0.12 BNP 225 Diagnostic Findings No updated imaging PG Care Time/CCT Total # of Minutes Spent Total Time Spent with Patient: Total time spent is greater than 50% in coordination of care (as documented) at patient's floor/unit and/or counseling patient: Coding Level of Care Code 72350 Subseq Hosp Care Lvl 3 Diagnoses COVID-19 U07.1 Acute respiratory failure with hypoxia J96.01 DVT prophylaxis Z29.9
[2021-08-25] MEDS: LOPERAMIDE HCL 2 MG CAP PO PRN (10:05)
[2021-08-25] MEDS ORDERED: hydrOXYzine HCl 25 MG TAB PO STA (11:42)
[2021-08-25] MEDS ORDERED: FUROSEMIDE 40 MG/4 ML VIAL IV ONE (14:29)
[2021-08-25] MEDS ORDERED: POTASSIUM CHLORIDE CRTAB 20 MEQ TABCR PO STA (16:15)
--- NOTE | 2021-08-25 17:15 | Hospitalist Progress Note ---
Date of Service August 25, 2021 Assessment & Plan (1) Hypoxia: (2) COVID-19: Plan: This is a 50yo F with a PMH of obesity presents from the pharmacy after being found to be hypoxic in the setting of covid (positive covid test 08/21/21). 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 At presentation, febrile at 38.1 C, saturating at 93% on 5 L NC, d-dimer 680, procal WNL. AST 154, ALT 110. Admitting procal negative CTA chest negative for pulmonary embolism. Covid isolation precautions BNP 08/24 --> 225, strict Is and O2, lasix as needed, one dose of lasix today 08/24 CRP 5.63 08/24 CXR worsening compared to admitting CXR. Continue IV dexamethasone 08/22, continue remdesivir 10/23 , incentive/flutter valve and proning Appreciate pulmonary input and recommendation She has been positive balance so far and will give another dose of Lasix of 60 mg IV today that is 08/25/2021 We will continue current management She has been agreeable to use CPAP as needed and be in prone position as far as she could tolerate to improve her condition The case was discussed with Dr. Taveras and was updated about her condition (3) Hypokalemia: Plan: Will monitor and replace (4) Hypomagnesemia: Plan: In setting of GI losses. Monitor and replete as appropriate (5) Nausea and vomiting: Plan: In setting of covid 19. Continue antiemetics PRN, IV fluid resuscitation, clear liquid diet and advance as tolerated Improving (6) Hypertension: Plan: Not on home medications. Continue with antihypertensives as needed Blood pressure remains on the upper side We will monitor and if needed we will add medications DVT Ppx: SQ lovenox Code status: FULL PCP: Fidelia Courtney Dispo: Admit to PCU Admission and Anticipated Discharge Date Admission Date: August 22, 2021 Subjective 08/25/2021 The patient was seen and examined in telemetry unit and in the Covid room She does not feel any better and still requiring high flow oxygen at 6 L/min with FiO2 100% to maintain saturation Trying to prone and has diminished cough Remains very anxious Review of Systems Review of Systems: All systems reviewed and are unremarkable except as noted below Respiratory: Moderate shortness of breath at rest with cough Physical Exam Physical Exam: Lying in bed with moderate shortness of breath Constitutional: well developed, well nourished, + ill appearing and + obese Eyes: PERRL, conjunctivae normal, anicteric sclerae ENMT: external ear and nose normal, oropharynx normal Neck: trachea midline, no thyromegaly Respiratory: + respiratory distress and + retractions Auscultation: + diminished lung sounds and + crackles (At the bases) Cardiovascular: Rate/Rhythm: regular rate, regular rhythm and + tachycardic Heart Sounds: normal S1 and normal S2 Extremities: + edema (Trace edema bilaterally) Gastrointestinal (Abdomen): Inspection/Auscultation: normal bowel sounds Percussion/Palpation: abdomen soft; abdomen nontender Musculoskeletal: No acute arthritis in any joint Neurologic: Alert, awake and oriented x3. Generally weak Results & Data Results & Data ([facility]) Vital Signs (Past 12 Hours) Vital Signs Temp Pulse Pulse Resp BP Pulse Ox 08/25/21 15:40 37.0 C 106 H 22 136/95 88 L 08/25/21 14:41 82 20 94 08/25/21 11:39 153/91 H 08/25/21 11:20 36.7 C 93 H 20 163/105 H 94 08/25/21 07:59 37.4 C 90 23 145/81 H 90 08/25/21 07:08 89 08/25/21 06:38 85 24 95 Laboratory Results [facility] 08/25/21 07:36 Sodium 140 Potassium 3.4 L Chloride 105 Carbon Dioxide 27 BUN 17 Creatinine 0.50 L Glucose 141 H Calcium 8.5 Medications Administered Current Inpatient Medications Acetaminophen (Acetaminophen 325 Mg Tab) 650 mg PO Q4H PRN PRN Reason: Pain or Fever Stop: 09/21/21 21:42 Last Admin: 08/25/21 08:50 Dose: 650 mg Documented by: Benzonatate (Benzonatate 100 Mg Capsule) 100 mg PO TID PRN PRN Reason: Cough Stop: 09/21/21 21:42 Enoxaparin Sodium (Enoxaparin Inj 40 Mg/0.4 Ml Syr) 40 mg SQ Q24H [place] Stop: 09/21/21 21:59 Last Admin: 08/24/21 22:04 Dose: 40 mg Documented by: Dexamethasone 6 mg/ Syringe 1.5 mls @ 1 mls/min IV DAILY [place] Stop: 09/02/21 08:59 Last Admin: 08/25/21 08:42 Dose: 1 mls/min Documented by: Loperamide HCl (Loperamide Hcl 2 Mg Cap) 2 mg PO Q3H PRN PRN Reason: Diarrhea Stop: 09/24/21 09:52 Last Admin: 08/25/21 10:05 Dose: 2 mg Documented by: Melatonin (Melatonin 3 Mg Tab) 3 mg PO HS PRN PRN Reason: Sleep Stop: 09/23/21 18:21 Last Admin: 08/24/21 22:04 Dose: 3 mg Documented by: Ondansetron HCl (Ondansetron Inj 2 Mg/Ml 2 Ml Vial) 4 mg IV Q6H PRN PRN Reason: Nausea Stop: 09/21/21 21:42 Polyethylene Glycol (Polyethylene (Miralax) 17 Gm Pack) 17 gm PO DAILY PRN PRN Reason: Constipation Stop: 09/21/21 21:42 Sodium Chloride (Sodium Chloride 0.9% 10ml Flush) 30 ml IV Q24H [place] Stop: 08/26/21 21:44 Last Admin: 08/24/21 21:10 Dose: 30 ml Documented by:
[2021-08-25] MEDS ORDERED: LORazepam 0.25 MG/0.5 ML VIAL IV STA (18:24)
[2021-08-25] MEDS: ENOXAPARIN INJ 40 MG/0.4 ML SYR SQ SCH (21:49)
[2021-08-26] MEDS: REMDESIVIR 100 MG in SODIUM CHLORIDE 0.9% 230 ML IV SCH ×2 (00:07→20:22)
[2021-08-26] MEDS: MELATONIN 3 MG TAB PO PRN ×2 (00:07→21:28)
[2021-08-26] MEDS: LORazepam 0.5 MG TAB PO PRN ×3 (00:07→21:28)
[2021-08-26] MEDS: SODIUM CHLORIDE 0.9% 10ML FLUSH IV SCH ×2 (01:10→21:35)
[2021-08-26 06:57] LABS: Albumin Level 3.1 gm/dl (3.4-5.0); BUN Creatinine Ratio 25.5 (10-20); Calcium 8.7 mg/dl (8.5-10.1); Creatinine Clr Calc Pharmacy 108.3 ml/min; Est GFR (African American) 106.8 ml/min; Est GFR (Non-African American) 92.1 ml/min; Potassium 3.3 mmol/L (3.5-5.1)
[2021-08-26 06:59] LABS: Albumin Globulin Ratio 0.6 (0.9-2); Bilirubin,Total 0.5 mg/dl (0.2-1); C Reactive Protein 1.99 mg/dl (0-0.29); Globulin 5.1 gm/dl (2.5-4.0); Total Protein 8.2 gm/dl (6.4-8.2)
[2021-08-26] MEDS: BENZONATATE 100 MG CAPSULE PO PRN (08:24)
[2021-08-26] MEDS: LOPERAMIDE HCL 2 MG CAP PO PRN ×2 (08:24→14:40)
[2021-08-26] MEDS: dexAMETHasone 6 MG in SYRINGE 0 ML IV SCH (08:24)
[2021-08-26] MEDS: ACETAMINOPHEN 325 MG TAB PO PRN ×2 (08:24→21:28)
[2021-08-26] MEDS ORDERED: POTASSIUM CHLORIDE CRTAB 20 MEQ TABCR PO STA ×2 (09:06→13:25)
--- NOTE | 2021-08-26 11:35 | Pulmonology Progress Note ---
Date of Service August 26, 2021 Assessment & Plan (1) COVID-19: (2) Acute respiratory failure with hypoxia: (3) DVT prophylaxis: Plan: Impression: Is a 50-year-old female that is nonvaccinated. She has symptoms starting 7 days ago. She is receiving dexamethasone as well as remdesivir. She is not a candidate for baricitinib or tocilizumab as her CRP is only 5.63. Patient is on high flow supplemental oxygen at 60 L/min and FiO2 of 100% with no distress with the supplemental oxygen. Recommendations: 1. COVID-19: Unvaccinated patient. Continue dexamethasone 6 mg daily. Given that she is 8 days out, I do not think altering viral replication with remdesivir is going to offer a clinical benefit and will be discontinued at this point time. 2. Acute respiratory failure with hypoxia: Continue high flow with target oxygen saturations at or above 88%. She should continue to self prone as tolerated. If she fails high flow, application of CPAP would be appropriate. If she fails CPAP, proceeding with intubation mechanical ventilation may be necessary. Hopefully we can avoid that. She denies any respiratory fatigue currently. BNP and pro calcitonin were normal. 3. DVT prophylaxis: per ACCP guidelines She appears stable to slightly improved over the last 24 hours. Please call should the patient's condition clinically worsen or if you should require intubation mechanical ventilation. Indications for intubation in this patient would be failure to achieve adequate oxygenation, increased work of breathing, refractory tachypnea, or multiorgan system failure. Admission and Anticipated Discharge Date Admission Date: August 22, 2021 Subjective Patient seen and examined. She feels that she is clinically improved. She is tolerating self proning. She remains on high flow oxygen. She is not required CPAP or BiPAP. She is coughing occasionally and expectorating small amount of phlegm. Review of Systems Review of Systems: All systems reviewed & are unremarkable except as noted in Subjective Physical Exam Constitutional: WD/WN, vitals as above Neck: trachea midline, no thyromegaly Respiratory: + labored breathing and + tachypneic; no respiratory distress Auscultation: + crackles; no wheezes Cardiovascular: RRR, no murmur, no edema Gastrointestinal (Abdomen): normal bowel sounds, soft, nontender, no hepatosplenomegaly Musculoskeletal: Extremities: extremities normal to inspection Skin: no rashes, warm and dry Lymphatic: no cervical lymphadenopathy Results & Data Results & Data ([facility]) Vital Signs (Past 12 Hours) Vital Signs Temp Pulse Pulse Pulse Resp BP Pulse Ox 08/26/21 10:35 99 H 26 H 90 08/26/21 08:03 108 H 26 H 84 L 08/26/21 08:01 37.0 C 110 H 22 125/94 92 08/26/21 08:00 101 H 08/26/21 03:24 36.8 C 90 18 136/82 95 08/26/21 03:15 81 24 91 Critical Care Results & Data Vital Signs (Past 12 Hours) Vital Signs Temp Pulse Pulse Pulse Resp BP Pulse Ox 08/26/21 10:35 99 H 26 H 90 08/26/21 08:03 108 H 26 H 84 L 08/26/21 08:01 37.0 C 110 H 22 125/94 92 08/26/21 08:00 101 H 08/26/21 03:24 36.8 C 90 18 136/82 95 08/26/21 03:15 81 24 91 Lab & Micro Results (Past 24 Hours) No Data to Display Na 136 mmol/L (136-145) 08/26/21 K 3.3 mmol/L (3.5-5.1) L 08/26/21 Cl 101 mmol/L (98-107) 08/26/21 CO2 26 mmol/L (21-32) 08/26/21 Anion Gap 9.0 (3-11) 08/26/21 BUN 19 mg/dl (7-18) H 08/26/21 Creatinine 0.76 mg/dl (0.6-1.2) 08/26/21 Estimated GFR ( Amer) 106.8 ml/min 08/26/21 Estimated GFR (Non-Af Amer) 92.1 ml/min 08/26/21 BUN/Creatinine Ratio 25.5 (10-20) H 08/26/21 Glu 174 mg/dl (70-99) H 08/26/21 Ca 8.7 mg/dl (8.5-10.1) 08/26/21 Total Bilirubin 0.5 mg/dl (0.2-1) 08/26/21 AST 71 U/L (15-37) H 08/26/21 ALT 111 (12-78) H 08/26/21 Alkaline Phosphatase 68 U/L (45-117) 08/26/21 TP 8.2 gm/dl (6.4-8.2) 08/26/21 Albumin 3.1 gm/dl (3.4-5.0) L 08/26/21 Globulin 5.1 gm/dl (2.5-4.0) H 08/26/21 Albumin/Globulin Ratio 0.6 (0.9-2) L 08/26/21 Calcium Level 8.7 mg/dl (8.5-10.1) 08/26/21 05:15 08/26/21 I & O Totals 24 Hours 08/25/21 08/26/21 08/27/21 06:59 06:59 06:59 Intake Total 570 / 570 1250 / 1250 240 / 240 Output Total 1005 / 1005 601 / 601 Balance -435 / -435 649 / 649 240 / 240 Cumulative 08/22/21 14:39 thru 08/26/21 08:00 Intake Total 5940 Output Total 1806 Balance 4134 RT Ventilator Mngmt (Last Documented) Ventilator Ordered Settings Respiratory Rate 26 08/26/21 10:35 Fraction of Inspired Oxygen 100 08/26/21 10:35 Ventilator - PT Measurements Respiratory Rate 26 PG Care Time/CCT Total # of Minutes Spent Total Time Spent with Patient: Total time spent is greater than 50% in coordination of care (as documented) at patient's floor/unit and/or counseling patient: Coding Level of Care Code 18515 Subseq Hosp Care Lvl 2 Diagnoses COVID-19 U07.1 Acute respiratory failure with hypoxia J96.01 DVT prophylaxis Z29.9
[2021-08-26] MEDS ORDERED: FUROSEMIDE 40 MG/4 ML VIAL IV ONE (13:26)
--- NOTE | 2021-08-26 15:16 | Hospitalist Progress Note ---
Date of Service August 26, 2021 Assessment & Plan (1) Hypoxia: (2) COVID-19: Plan: This is a 50yo F with a PMH of obesity presents from the pharmacy after being found to be hypoxic in the setting of covid (positive covid test 08/21/21). 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 At presentation, febrile at 38.1 C, saturating at 93% on 5 L NC, d-dimer 680, procal WNL. AST 154, ALT 110. Admitting procal negative CTA chest negative for pulmonary embolism. Covid isolation precautions BNP 08/24 --> 225, strict Is and O2, lasix as needed, one dose of lasix today 08/24 CRP 5.63 08/24 CXR worsening compared to admitting CXR. Continue IV dexamethasone 08/22, continue remdesivir 10/23 , incentive/flutter valve and proning Appreciate pulmonary input and recommendation She has been positive balance so far and will give another dose of Lasix of 60 mg IV today that is 08/25/2021 She has been agreeable to use CPAP as needed and be in prone position as far as she could tolerate to improve her condition The case was discussed with Dr. Taveras and was updated about her condition Clinically a little better but is still requiring high flow oxygen She has been proning as much as possible and she will be given another dose of Lasix today (3) Hypokalemia: Plan: Will monitor and replace We will replace and monitor (4) Hypomagnesemia: Plan: In setting of GI losses. Monitor and replete as appropriate (5) Nausea and vomiting: Plan: In setting of covid 19. Continue antiemetics PRN, IV fluid resuscitation, clear liquid diet and advance as tolerated Improving (6) Hypertension: Plan: Not on home medications. Continue with antihypertensives as needed Blood pressure remains on the upper side We will monitor and if needed we will add medications DVT Ppx: SQ lovenox Code status: FULL PCP: Fidelia Courtney Dispo: Admit to PCU Admission and Anticipated Discharge Date Admission Date: August 22, 2021 Subjective 08/25/2021 The patient was seen and examined in telemetry unit and in the Covid room She does not feel any better and still requiring high flow oxygen at 6 L/min with FiO2 100% to maintain saturation Trying to prone and has diminished cough Remains very anxious 08/26/2021 The patient was seen and examined in telemetry unit and in the Covid room She has been feeling little better but is still requiring 6 L at 100% FiO2 to maintain saturation Minimal cough and weakness has been improving Review of Systems Review of Systems: All systems reviewed and are unremarkable except as noted below Respiratory: Moderate shortness of breath at rest with cough Physical Exam Physical Exam: Lying in bed with moderate shortness of breath Constitutional: well developed, well nourished, + ill appearing and + obese Eyes: PERRL, conjunctivae normal, anicteric sclerae ENMT: external ear and nose normal, oropharynx normal Neck: trachea midline, no thyromegaly Respiratory: + respiratory distress and + retractions Auscultation: + diminished lung sounds and + crackles (At the bases) Cardiovascular: Rate/Rhythm: regular rate, regular rhythm and + tachycardic Heart Sounds: normal S1 and normal S2 Extremities: + edema (Trace edema bilaterally) Gastrointestinal (Abdomen): Inspection/Auscultation: normal bowel sounds Percussion/Palpation: abdomen soft; abdomen nontender Musculoskeletal: No acute arthritis in any joint Neurologic: Alert, awake and oriented x3. Generally weak Psychiatric: A+Ox3, euthymic affect Lymphatic: no cervical or axillary lymphadenopathy Results & Data Results & Data ([facility]) Vital Signs (Past 12 Hours) Vital Signs Temp Pulse Pulse Pulse Resp BP Pulse Ox 08/26/21 14:55 87 24 94 08/26/21 12:40 91 H 08/26/21 12:37 149/85 H 08/26/21 12:35 37.3 C 87 20 149/85 H 92 08/26/21 10:35 99 H 26 H 90 08/26/21 08:03 108 H 26 H 84 L 08/26/21 08:01 37.0 C 110 H 22 125/94 92 08/26/21 08:00 101 H 97 08/26/21 03:24 36.8 C 90 18 136/82 95 08/26/21 03:15 81 24 91 Pulse Ox 08/26/21 14:55 08/26/21 12:40 97 08/26/21 12:37 08/26/21 12:35 08/26/21 10:35 08/26/21 08:03 08/26/21 08:01 08/26/21 08:00 08/26/21 03:24 08/26/21 03:15 Laboratory Results BMP 08/26/21 05:15 Sodium 136 Potassium 3.3 L Chloride 101 Carbon Dioxide 26 BUN 19 H Creatinine 0.76 Glucose 174 H Calcium 8.7 Liver Function 08/26/21 Range/Units 05:15 Total Bilirubin 0.5 (0.2-1) mg/dl AST 71 H (15-37) U/L ALT 111 H (12-78) Alkaline Phosphatase 68 (45-117) U/L Albumin 3.1 L (3.4-5.0) gm/dl Medications Administered Current Inpatient Medications Acetaminophen (Acetaminophen 325 Mg Tab) 650 mg PO Q4H PRN PRN Reason: Pain or Fever Stop: 09/21/21 21:42 Last Admin: 08/26/21 08:24 Dose: 650 mg Documented by: Benzonatate (Benzonatate 100 Mg Capsule) 100 mg PO TID PRN PRN Reason: Cough Stop: 09/21/21 21:42 Last Admin: 08/26/21 08:24 Dose: 100 mg Documented by: Enoxaparin Sodium (Enoxaparin Inj 40 Mg/0.4 Ml Syr) 40 mg SQ Q24H [place] Stop: 09/21/21 21:59 Last Admin: 08/25/21 21:49 Dose: 40 mg Documented by: Dexamethasone 6 mg/ Syringe 1.5 mls @ 1 mls/min IV DAILY [place] Stop: 09/02/21 08:59 Last Admin: 08/26/21 08:24 Dose: 1 mls/min Documented by: Remdesivir 100 mg/ Sodium (Chloride) 250 mls @ 250 mls/hr IV DAILY@1999 [facility]; Protocol Stop: 08/26/21 20:59 Last Infusion: 08/26/21 01:10 Dose: Infused Documented by: Loperamide HCl (Loperamide Hcl 2 Mg Cap) 2 mg PO Q3H PRN PRN Reason: Diarrhea Stop: 09/24/21 09:52 Last Admin: 08/26/21 14:40 Dose: 2 mg Documented by: Lorazepam (Lorazepam 0.5 Mg Tab) 0.5 mg PO BID PRN PRN Reason: Anxiety Stop: 08/26/21 20:00 Last Admin: 08/26/21 08:31 Dose: 0.5 mg Documented by: Melatonin (Melatonin 3 Mg Tab) 3 mg PO HS PRN PRN Reason: Sleep Stop: 09/23/21 18:21 Last Admin: 08/26/21 00:07 Dose: 3 mg Documented by: Ondansetron HCl (Ondansetron Inj 2 Mg/Ml 2 Ml Vial) 4 mg IV Q6H PRN PRN Reason: Nausea Stop: 09/21/21 21:42 Polyethylene Glycol (Polyethylene (Miralax) 17 Gm Pack) 17 gm PO DAILY PRN PRN Reason: Constipation Stop: 09/21/21 21:42 Sodium Chloride (Sodium Chloride 0.9% 10ml Flush) 30 ml IV Q24H [place] Stop: 08/26/21 21:44 Last Admin: 08/26/21 01:10 Dose: 30 ml Documented by:
[2021-08-26] MEDS: ENOXAPARIN INJ 40 MG/0.4 ML SYR SQ SCH (21:27)
[2021-08-27] MEDS: BENZONATATE 100 MG CAPSULE PO PRN ×2 (05:38→22:16)
[2021-08-27] MEDS: dexAMETHasone 6 MG in SYRINGE 0 ML IV SCH (08:07)
[2021-08-27] MEDS: LORazepam 0.5 MG TAB PO PRN ×2 (08:07→22:16)
[2021-08-27 08:41] LABS: Albumin Level 2.9 gm/dl (3.4-5.0); BUN Creatinine Ratio 30.7 (10-20); Bilirubin Direct 0.1 mg/dl (0-0.2); Creatinine Clr Calc Pharmacy 131.9 ml/min; Est GFR (African American) 122.7 ml/min; Est GFR (Non-African American) 105.9 ml/min; Magnesium 2.1 mg/dl (1.8-2.4)
[2021-08-27 08:44] LABS: Bilirubin,Total 0.6 mg/dl (0.2-1); Total Protein 7.8 gm/dl (6.4-8.2)
[2021-08-27] MEDS ORDERED: POTASSIUM CHLORIDE CRTAB 20 MEQ TABCR PO STA (09:44)
[2021-08-27] MEDS: ACETAMINOPHEN 325 MG TAB PO PRN ×2 (09:55→22:16)
[2021-08-27] MEDS ORDERED: FUROSEMIDE 40 MG/4 ML VIAL IV ONE (10:28)
--- NOTE | 2021-08-27 11:02 | XRay Report ---
XR chest 1V portable CLINICAL HISTORY: Covid pneumonia TECHNIQUE: Single frontal radiograph of the chest was obtained. Comparison: Comparison is made to chest one view 08/24/2021 FINDINGS: No lines and tubes are seen. The cardiomediastinal silhouette is normal. Multifocal airspace opacitie s are seen. No evidence of pleural effusion or pneumothorax. IMPRESSION: Multifocal airspace opacities compatible with history of Covid pneumonia. ACT 112: Negative or not required by law. Electronically signed by: Robert House M.D. 08/27/2021 11:01 AM
--- NOTE | 2021-08-27 12:25 | Hospitalist Progress Note ---
Date of Service August 27, 2021 Assessment & Plan (1) Hypoxia: (2) COVID-19: Plan: This is a 50yo F with a PMH of obesity presents from the pharmacy after being found to be hypoxic in the setting of covid (positive covid test 08/21/21). She is not vaccinated for COVID-19 virus Symptomatic for 5 days [employer], received monoclonal antibodies at pharmacy on the day of arrival, found to be hypoxic in 70s and directed to ED for further evaluation admitting CXR with Multifocal bilateral airspace opacities are suggestive of viral pneumonia. At presentation, febrile at 38.1 C, saturating at 93% on 5 L NC, d-dimer 680, procal WNL. AST 154, ALT 110. Admitting procal negative CTA chest negative for pulmonary embolism. Covid isolation precautions BNP 08/24 --> 225, strict Is and O2, lasix as needed, one dose of lasix today 08/24 CRP 5.63 08/24 CXR worsening compared to admitting CXR. Continue IV dexamethasone 08/22, continue remdesivir 10/23 , incentive/flutter valve and proning Appreciate pulmonary input and recommendation She has been positive balance so far and will give another dose of Lasix of 60 mg IV today that is 08/25/2021 She has been agreeable to use CPAP as needed and be in prone position as far as she could tolerate to improve her condition The case was discussed with Dr. Taveras and was updated about her condition Clinically a little better but is still requiring high flow oxygen She has been proning as much as possible and she will be given another dose of Lasix today She has been feeling much better and the chest x-ray looks better too She will get another dose of Lasix today XOCHITL Has been complaining of anxiety symptoms and not being able to take any rest during the day and not at night She has been getting Ativan 0.5 mg p.o. twice daily as needed which will be increased to 3 times daily as needed She was warned against possible side effects of Ativan given respiratory condition (3) Hypokalemia: Plan: Will monitor and replace We will replace and monitor Potassium remains low at 3.0-adequate supplementation will be given as she has been on Lasix as well We will monitor potassium and also magnesium (4) Hypomagnesemia: Plan: In setting of GI losses. Monitor and replete as appropriate (5) Nausea and vomiting: Plan: In setting of covid 19. Continue antiemetics PRN, IV fluid resuscitation, clear liquid diet and advance as tolerated Improving (6) Hypertension: Plan: Not on home medications. Continue with antihypertensives as needed Blood pressure remains on the upper side We will monitor and if needed we will add medications DVT Ppx: SQ lovenox Code status: FULL PCP: Fidelia Courtney Dispo: Admit to PCU Admission and Anticipated Discharge Date Admission Date: August 22, 2021 Subjective 08/25/2021 The patient was seen and examined in telemetry unit and in the Covid room She does not feel any better and still requiring high flow oxygen at 6 L/min with FiO2 100% to maintain saturation Trying to prone and has diminished cough Remains very anxious 08/26/2021 The patient was seen and examined in telemetry unit and in the Covid room She has been feeling little better but is still requiring 6 L at 100% FiO2 to maintain saturation Minimal cough and weakness has been improving 08/27/2021 The patient was seen and examined in telemetry unit and in the Covid room She has been feeling much better but remains very anxious Still requires high flow oxygen and the nurse is going to titrated down to maintain saturation She definitely wants to have another dose of Ativan to calm down which has been helping her a lot She was warned against side effects of Ativan especially with respiratory distress and she still wanted to have it Review of Systems Review of Systems: All systems reviewed and are unremarkable except as noted below Respiratory: Moderate shortness of breath at rest with cough Physical Exam Physical Exam: Lying in bed with moderate shortness of breath Constitutional: well developed, well nourished, + ill appearing and + obese Eyes: PERRL, conjunctivae normal, anicteric sclerae ENMT: external ear and nose normal, oropharynx normal Neck: trachea midline, no thyromegaly Respiratory: + respiratory distress and + retractions Auscultation: + diminished lung sounds and + crackles (At the bases) Cardiovascular: Rate/Rhythm: regular rate, regular rhythm and + tachycardic Heart Sounds: normal S1 and normal S2 Extremities: + edema (Trace edema bilaterally) Gastrointestinal (Abdomen): Inspection/Auscultation: normal bowel sounds Percussion/Palpation: abdomen soft; abdomen nontender Musculoskeletal: No acute arthritis in any joint Neurologic: Alert, awake and oriented x3. Generally very anxious and weak Psychiatric: A+Ox3, euthymic affect Lymphatic: no cervical or axillary lymphadenopathy Results & Data Results & Data ([facility]) Vital Signs (Past 12 Hours) Vital Signs Temp Pulse Pulse Resp BP Pulse Ox Pulse Ox 08/27/21 12:00 37.0 C 118 H 16 120/76 95 95 08/27/21 11:57 101 H 18 93 08/27/21 08:02 36.6 C 99 H 20 150/88 H 95 08/27/21 08:00 20 94 08/27/21 07:42 95 H 08/27/21 04:00 37.4 C 99 H 18 109/86 94 08/27/21 03:06 73 22 96 Laboratory Results [facility] 08/27/21 07:34 Sodium 135 L Potassium 3.0 L Chloride 100 Carbon Dioxide 26 BUN 19 H Creatinine 0.62 Glucose 154 H Calcium 9.0 Liver Function 08/27/21 Range/Units 07:34 Total Bilirubin 0.6 (0.2-1) mg/dl Direct Bilirubin 0.1 (0-0.2) mg/dl AST 51 H (15-37) U/L ALT 90 H (12-78) Alkaline Phosphatase 64 (45-117) U/L Albumin 2.9 L (3.4-5.0) gm/dl Medications Administered Current Inpatient Medications Acetaminophen (Acetaminophen 325 Mg Tab) 650 mg PO Q4H PRN PRN Reason: Pain or Fever Stop: 09/21/21 21:42 Last Admin: 08/27/21 09:55 Dose: 650 mg Documented by: Benzonatate (Benzonatate 100 Mg Capsule) 100 mg PO TID PRN PRN Reason: Cough Stop: 09/21/21 21:42 Last Admin: 08/27/21 05:38 Dose: 100 mg Documented by: Enoxaparin Sodium (Enoxaparin Inj 40 Mg/0.4 Ml Syr) 40 mg SQ Q24H [place] Stop: 09/21/21 21:59 Last Admin: 08/26/21 21:27 Dose: 40 mg Documented by: Dexamethasone 6 mg/ Syringe 1.5 mls @ 1 mls/min IV DAILY [place] Stop: 09/02/21 08:59 Last Admin: 08/27/21 08:07 Dose: 1 mls/min Documented by: Loperamide HCl (Loperamide Hcl 2 Mg Cap) 2 mg PO Q3H PRN PRN Reason: Diarrhea Stop: 09/24/21 09:52 Last Admin: 08/26/21 14:40 Dose: 2 mg Documented by: Lorazepam (Lorazepam 0.5 Mg Tab) 0.5 mg PO TID PRN PRN Reason: Anxiety Stop: 09/25/21 20:43 Melatonin (Melatonin 3 Mg Tab) 3 mg PO HS PRN PRN Reason: Sleep Stop: 09/23/21 18:21 Last Admin: 08/26/21 21:28 Dose: 3 mg Documented by: Ondansetron HCl (Ondansetron Inj 2 Mg/Ml 2 Ml Vial) 4 mg IV Q6H PRN PRN Reason: Nausea Stop: 09/21/21 21:42 Polyethylene Glycol (Polyethylene (Miralax) 17 Gm Pack) 17 gm PO DAILY PRN PRN Reason: Constipation Stop: 09/21/21 21:42 Potassium Chloride (Potassium Chloride Crtab 20 Meq Tabcr) 40 meq PO ONE ONE Stop: 08/27/21 13:01
[2021-08-27] MEDS ORDERED: POTASSIUM CHLORIDE CRTAB 20 MEQ TABCR PO ONE (13:00)
[2021-08-27] MEDS: ENOXAPARIN INJ 40 MG/0.4 ML SYR SQ SCH (22:15)
[2021-08-27] MEDS: LOPERAMIDE HCL 2 MG CAP PO PRN (22:16)
[2021-08-27] MEDS: MELATONIN 3 MG TAB PO PRN (22:17)
[2021-08-28] MEDS: BENZONATATE 100 MG CAPSULE PO PRN ×3 (03:52→21:25)
[2021-08-28 07:16] LABS: Basophils # (auto) 0.02 K/uL (0-0.2); Basophils % (auto) 0.2 %; Eosinophils # (auto) 0.12 K/uL (0-0.5); Hematocrit (blood only) 44.1 % (37-47); Hemoglobin 14.9 g/dL (12.0-16.0); Immature Granulocytes # (auto) 0.06 K/uL (0.00-0.02); Immature Granulocytes % (auto) 0.5 %; Lymphocytes # (auto) 1.49 K/uL (1.2-3.4); Lymphocytes % (auto) 12.7 %; Mean Corpuscular Hemoglobin 30.5 pg (25-34); Mean Corpuscular Hgb Conc 33.8 g/dL (32-36); Mean Corpuscular Volume 90.2 fL (80-100); Mean Platelet Volume 9.8 fL (7.4-10.4); Monocytes # (auto) 0.55 K/uL (0.11-0.59); Monocytes % (auto) 4.7 %; Neutrophils # (auto) 9.53 K/uL (1.4-6.5); Neutrophils % (auto) 80.9 %; Platelet Count 480 K/uL (130-400); RDW Coefficient of Variation 12.5 % (11.5-14.5); RDW Standard Deviation 41.5 fL (36.4-46.3); Red Blood Count 4.89 M/uL (4.2-5.4); White Blood Count 11.77 K/uL (4.8-10.8)
[2021-08-28 07:32] LABS: Potassium 3.3 mmol/L (3.5-5.1)
[2021-08-28 07:37] LABS: BUN Creatinine Ratio 22.7 (10-20); Calcium 8.9 mg/dl (8.5-10.1); Creatinine Clr Calc Pharmacy 140.4 ml/min; Est GFR (African American) 125.4 ml/min; Est GFR (Non-African American) 108.2 ml/min; Magnesium 2.1 mg/dl (1.8-2.4)
[2021-08-28] MEDS: LORazepam 0.5 MG TAB PO PRN ×2 (07:59→21:25)
[2021-08-28] MEDS: LOPERAMIDE HCL 2 MG CAP PO PRN (07:59)
[2021-08-28] MEDS: ACETAMINOPHEN 325 MG TAB PO PRN ×3 (07:59→21:25)
[2021-08-28] MEDS: dexAMETHasone 6 MG in SYRINGE 0 ML IV SCH (08:00)
[2021-08-28] MEDS ORDERED: POTASSIUM CHLORIDE CRTAB 20 MEQ TABCR PO STA ×2 (08:10→14:38)
[2021-08-28] MEDS ORDERED: FUROSEMIDE 40 MG/4 ML VIAL IV ONE (14:45)
--- NOTE | 2021-08-28 15:41 | Hospitalist Progress Note ---
Date of Service August 28, 2021 Assessment & Plan (1) Hypoxia: (2) COVID-19: Plan: This is a 50yo F with a PMH of obesity presents from the pharmacy after being found to be hypoxic in the setting of covid (positive covid test 08/21/21). 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 At presentation, febrile at 38.1 C, saturating at 93% on 5 L NC, d-dimer 680, procal WNL. AST 154, ALT 110. Admitting procal negative CTA chest negative for pulmonary embolism. Covid isolation precautions BNP 08/24 --> 225, strict Is and O2, lasix as needed, one dose of lasix today 08/24 CRP 5.63 08/24 CXR worsening compared to admitting CXR. Continue IV dexamethasone 08/22, continue remdesivir 10/23 , incentive/flutter valve and proning Appreciate pulmonary input and recommendation She has been positive balance so far and will give another dose of Lasix of 60 mg IV today that is 08/25/2021 She has been agreeable to use CPAP as needed and be in prone position as far as she could tolerate to improve her condition The case was discussed with Dr. Taveras and was updated about her condition Clinically a little better but is still requiring high flow oxygen She has been proning as much as possible and she will be given another dose of Lasix today She has been feeling much better and the chest x-ray looks better too Clinically much better and remains in positive balance and is still requiring high flow oxygen to maintain saturation We will get another dose of Lasix today XOCHITL Has been complaining of anxiety symptoms and not being able to take any rest during the day and not at night She has been getting Ativan 0.5 mg p.o. twice daily as needed which will be increased to 3 times daily as needed She was warned against possible side effects of Ativan given respiratory condition (3) Hypokalemia: Plan: Will monitor and replace We will replace and monitor Potassium remains low at 3.0-adequate supplementation will be given as she has been on Lasix as well We will monitor potassium and also magnesium We will keep supplementing (4) Hypomagnesemia: Plan: In setting of GI losses. Monitor and replete as appropriate Level is normal (5) Nausea and vomiting: Plan: In setting of covid 19. Continue antiemetics PRN, IV fluid resuscitation, clear liquid diet and advance as tolerated No nausea, vomiting or diarrhea (6) Hypertension: Plan: Not on home medications. Continue with antihypertensives as needed Blood pressure remains on the upper side We will monitor and if needed we will add medications DVT Ppx: SQ lovenox Code status: FULL PCP: Fidelia Courtney Dispo: Admit to PCU Admission and Anticipated Discharge Date Admission Date: August 22, 2021 Subjective 08/25/2021 The patient was seen and examined in telemetry unit and in the Covid room She does not feel any better and still requiring high flow oxygen at 6 L/min with FiO2 100% to maintain saturation Trying to prone and has diminished cough Remains very anxious 08/26/2021 The patient was seen and examined in telemetry unit and in the Covid room She has been feeling little better but is still requiring 6 L at 100% FiO2 to maintain saturation Minimal cough and weakness has been improving 08/27/2021 The patient was seen and examined in telemetry unit and in the Covid room She has been feeling much better but remains very anxious Still requires high flow oxygen and the nurse is going to titrated down to maintain saturation She definitely wants to have another dose of Ativan to calm down which has been helping her a lot She was warned against side effects of Ativan especially with respiratory distress and she still wanted to have it 08/28/2021 The patient was seen and examined in telemetry unit and in the Covid room She has been feeling better but is still requires high flow oxygen to maintain saturation She remains in positive balance Review of Systems Review of Systems: All systems reviewed and are unremarkable except as noted below Respiratory: Moderate shortness of breath at rest with cough Physical Exam Physical Exam: Lying in bed with moderate shortness of breath Constitutional: well developed, well nourished, + ill appearing and + obese Eyes: PERRL, conjunctivae normal, anicteric sclerae ENMT: external ear and nose normal, oropharynx normal Neck: trachea midline, no thyromegaly Respiratory: + respiratory distress and + retractions Auscultation: + diminished lung sounds and + crackles (At the bases) Cardiovascular: Rate/Rhythm: regular rate, regular rhythm and + tachycardic Heart Sounds: normal S1 and normal S2 Extremities: + edema (Trace edema bilaterally) Gastrointestinal (Abdomen): Inspection/Auscultation: normal bowel sounds Percussion/Palpation: abdomen soft; abdomen nontender Psychiatric: A+Ox3, euthymic affect Lymphatic: no cervical or axillary lymphadenopathy Results & Data Results & Data ([facility]) Vital Signs (Past 12 Hours) Vital Signs Temp Pulse Pulse Pulse Resp BP BP 08/28/21 15:31 110 H 08/28/21 14:46 37.3 C 109 H 20 132/96 08/28/21 12:00 08/28/21 11:42 101 H 22 08/28/21 11:05 37.0 C 100 H 19 132/93 08/28/21 08:23 106 H 24 08/28/21 08:00 101 H 12 129/94 08/28/21 07:23 37.2 C 104 H 22 93/69 L 08/28/21 07:14 101 H 08/28/21 04:00 36.8 C 95 H 17 151/91 H Pulse Ox Pulse Ox 08/28/21 15:31 08/28/21 14:46 95 08/28/21 12:00 96 08/28/21 11:42 93 08/28/21 11:05 93 08/28/21 08:23 94 08/28/21 08:00 95 08/28/21 07:23 93 08/28/21 07:14 08/28/21 04:00 92 Laboratory Results Short CBC 08/28/21 Range/Units 05:37 WBC 11.77 H (4.8-10.8) K/uL Hgb 14.9 (12.0-16.0) g/dL Hct 44.1 (37-47) % Plt Count 480 H (130-400) K/uL BMP 08/28/21 05:37 Sodium 131 L Potassium 3.3 L Chloride 97 L Carbon Dioxide 25 BUN 13 Creatinine 0.58 L Glucose 137 H Calcium 8.9 Medications Administered Current Inpatient Medications Acetaminophen (Acetaminophen 325 Mg Tab) 650 mg PO Q4H PRN PRN Reason: Pain or Fever Stop: 09/21/21 21:42 Last Admin: 08/28/21 07:59 Dose: 650 mg Documented by: Benzonatate (Benzonatate 100 Mg Capsule) 100 mg PO TID PRN PRN Reason: Cough Stop: 09/21/21 21:42 Last Admin: 08/28/21 10:55 Dose: 100 mg Documented by: Enoxaparin Sodium (Enoxaparin Inj 40 Mg/0.4 Ml Syr) 40 mg SQ Q24H [place] Stop: 09/21/21 21:59 Last Admin: 08/27/21 22:15 Dose: 40 mg Documented by: Dexamethasone 6 mg/ Syringe 1.5 mls @ 1 mls/min IV DAILY [place] Stop: 09/02/21 08:59 Last Admin: 08/28/21 08:00 Dose: 1 mls/min Documented by: Loperamide HCl (Loperamide Hcl 2 Mg Cap) 2 mg PO Q3H PRN PRN Reason: Diarrhea Stop: 09/24/21 09:52 Last Admin: 08/28/21 07:59 Dose: 2 mg Documented by: Lorazepam (Lorazepam 0.5 Mg Tab) 0.5 mg PO TID PRN PRN Reason: Anxiety Stop: 09/25/21 20:43 Last Admin: 08/28/21 07:59 Dose: 0.5 mg Documented by: Melatonin (Melatonin 3 Mg Tab) 3 mg PO HS PRN PRN Reason: Sleep Stop: 09/23/21 18:21 Last Admin: 08/27/21 22:17 Dose: 3 mg Documented by: Ondansetron HCl (Ondansetron Inj 2 Mg/Ml 2 Ml Vial) 4 mg IV Q6H PRN PRN Reason: Nausea Stop: 09/21/21 21:42 Polyethylene Glycol (Polyethylene (Miralax) 17 Gm Pack) 17 gm PO DAILY PRN PRN Reason: Constipation Stop: 09/21/21 21:42
[2021-08-28] MEDS: ENOXAPARIN INJ 40 MG/0.4 ML SYR SQ SCH (21:24)
[2021-08-28] MEDS: MELATONIN 3 MG TAB PO PRN (21:25)
[2021-08-29 08:06] LABS: BUN Creatinine Ratio 21.9 (10-20); Calcium 9.3 mg/dl (8.5-10.1); Creatinine Clr Calc Pharmacy 111.8 ml/min; Est GFR (African American) 113.2 ml/min; Est GFR (Non-African American) 97.7 ml/min
[2021-08-29] MEDS: dexAMETHasone 6 MG in SYRINGE 0 ML IV SCH (08:10)
[2021-08-29] MEDS: ACETAMINOPHEN 325 MG TAB PO PRN ×2 (08:10→20:54)
[2021-08-29] MEDS: BENZONATATE 100 MG CAPSULE PO PRN ×3 (08:10→20:55)
[2021-08-29] MEDS: LORazepam 0.5 MG TAB PO PRN ×2 (08:10→20:54)
[2021-08-29 08:23] LABS: Potassium 3.8 mmol/L (3.5-5.1)
[2021-08-29] MEDS ORDERED: POTASSIUM CHLORIDE CRTAB 20 MEQ TABCR PO STA (10:29)
[2021-08-29] MEDS ORDERED: BUMETANIDE 2 MG in SYRINGE 0 ML IV ONE (10:45)
[2021-08-29] MEDS: HYDROcodone/HOMATROPINE SYRUP 5MG/1.5MG 5ML UDP PO SCH ×3 (11:42→22:58)
--- NOTE | 2021-08-29 14:18 | Hospitalist Progress Note ---
Date of Service August 29, 2021 Assessment & Plan (1) Hypoxia: (2) COVID-19: Plan: This is a 50yo F with a PMH of obesity presents from the pharmacy after being found to be hypoxic in the setting of covid (positive covid test 08/21/21). 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 At presentation, febrile at 38.1 C, saturating at 93% on 5 L NC, d-dimer 680, procal WNL. AST 154, ALT 110. Admitting procal negative CTA chest negative for pulmonary embolism. Covid isolation precautions BNP 08/24 --> 225, strict Is and O2, lasix as needed, one dose of lasix today 08/24 CRP 5.63 08/24 CXR worsening compared to admitting CXR. Continue IV dexamethasone 08/22, continue remdesivir 10/23 , incentive/flutter valve and proning Appreciate pulmonary input and recommendation She has been positive balance so far and will give another dose of Lasix of 60 mg IV today that is 08/25/2021 She has been agreeable to use CPAP as needed and be in prone position as far as she could tolerate to improve her condition The case was discussed with Dr. Taveras and was updated about her condition Clinically a little better but is still requiring high flow oxygen She has been proning as much as possible and she will be given another dose of Lasix today She has been feeling much better and the chest x-ray looks better too Clinically much better and remains in positive balance and is still requiring high flow oxygen to maintain saturation Still remains in positive balance we will change Lasix to Bumex 2 mg IV today Clinically a little better and oxygen requirements has gone down to 50 L/min We will give [id number] cough suppressants XOCHITL Has been complaining of anxiety symptoms and not being able to take any rest during the day and not at night She has been getting Ativan 0.5 mg p.o. twice daily as needed which will be increased to 3 times daily as needed She was warned against possible side effects of Ativan given respiratory condition (3) Hypokalemia: Plan: Will monitor and replace We will replace and monitor Potassium remains low at 3.0-adequate supplementation will be given as she has been on Lasix as well We will monitor potassium and also magnesium We will keep supplementing (4) Hypomagnesemia: Plan: In setting of GI losses. Monitor and replete as appropriate Level is normal (5) Nausea and vomiting: Plan: In setting of covid 19. Continue antiemetics PRN, IV fluid resuscitation, clear liquid diet and advance as tolerated No nausea, vomiting or diarrhea (6) Hypertension: Plan: Not on home medications. Continue with antihypertensives as needed Blood pressure remains on the upper side We will monitor and if needed we will add medications DVT Ppx: SQ lovenox Code status: FULL PCP: Fidelia Courtney Dispo: Admit to PCU Admission and Anticipated Discharge Date Admission Date: August 22, 2021 Subjective 08/25/2021 The patient was seen and examined in telemetry unit and in the Covid room She does not feel any better and still requiring high flow oxygen at 6 L/min with FiO2 100% to maintain saturation Trying to prone and has diminished cough Remains very anxious 08/26/2021 The patient was seen and examined in telemetry unit and in the Covid room She has been feeling little better but is still requiring 6 L at 100% FiO2 to maintain saturation Minimal cough and weakness has been improving 08/27/2021 The patient was seen and examined in telemetry unit and in the Covid room She has been feeling much better but remains very anxious Still requires high flow oxygen and the nurse is going to titrated down to maintain saturation She definitely wants to have another dose of Ativan to calm down which has been helping her a lot She was warned against side effects of Ativan especially with respiratory distress and she still wanted to have it 08/28/2021 The patient was seen and examined in telemetry unit and in the Covid room She has been feeling better but is still requires high flow oxygen to maintain saturation She remains in positive balance 08/29/2021 The patient was seen and examined in telemetry unit and in the Covid room She has been feeling a little better and oxygen requirements has gone down to 50 L/min instead of 60 Still has cough and remains anxious Review of Systems Review of Systems: All systems reviewed and are unremarkable except as noted below Respiratory: Moderate shortness of breath at rest with cough Physical Exam Physical Exam: Lying in bed with moderate shortness of breath Constitutional: well developed, well nourished, + ill appearing and + obese Eyes: PERRL, conjunctivae normal, anicteric sclerae ENMT: external ear and nose normal, oropharynx normal Neck: trachea midline, no thyromegaly Respiratory: + respiratory distress and + retractions Auscultation: + diminished lung sounds and + crackles (At the bases) Cardiovascular: Rate/Rhythm: regular rate, regular rhythm and + tachycardic Heart Sounds: normal S1 and normal S2 Extremities: + edema (Trace edema bilaterally) Gastrointestinal (Abdomen): Inspection/Auscultation: normal bowel sounds Percussion/Palpation: abdomen soft; abdomen nontender Musculoskeletal: No acute arthritis in any joint Neurologic: Alert, awake and oriented x3. Generally weak Psychiatric: A+Ox3, euthymic affect Lymphatic: no cervical or axillary lymphadenopathy Results & Data Results & Data ([facility]) Vital Signs (Past 12 Hours) Vital Signs Temp Pulse Pulse Pulse Resp BP Pulse Ox 08/29/21 12:00 08/29/21 11:03 37.2 C 98 H 23 117/71 94 08/29/21 08:00 101 H 08/29/21 06:57 37.6 C H 109 H 24 139/82 88 L 08/29/21 04:38 37.0 C 92 H 22 128/97 90 08/29/21 04:37 79 22 96 Pulse Ox 08/29/21 12:00 94 08/29/21 11:03 08/29/21 08:00 08/29/21 06:57 08/29/21 04:38 08/29/21 04:37 Diagnostic Findings BMP 08/29/21 06:49 Sodium 132 L Potassium 3.8 D Chloride 97 L Carbon Dioxide 25 BUN 16 Creatinine 0.72 Glucose 164 H Calcium 9.3
[2021-08-29] MEDS: LOPERAMIDE HCL 2 MG CAP PO PRN (16:06)
[2021-08-29] MEDS: guaiFENesin 600 MG TABCR PO SCH (20:54)
[2021-08-29] MEDS: MELATONIN 3 MG TAB PO PRN (20:54)
[2021-08-29] MEDS: ENOXAPARIN INJ 40 MG/0.4 ML SYR SQ SCH (20:55)
[2021-08-30] MEDS: ACETAMINOPHEN 325 MG TAB PO PRN ×3 (03:30→19:44)
[2021-08-30] MEDS: HYDROcodone/HOMATROPINE SYRUP 5MG/1.5MG 5ML UDP PO SCH ×4 (06:09→23:32)
[2021-08-30 07:45] LABS: Basophils # (auto) 0.01 K/uL (0-0.2); Basophils % (auto) 0.1 %; Eosinophils # (auto) 0.36 K/uL (0-0.5); Eosinophils % (auto) 2.4 %; Hematocrit (blood only) 44.2 % (37-47); Hemoglobin 15.2 g/dL (12.0-16.0); Immature Granulocytes # (auto) 0.06 K/uL (0.00-0.02); Immature Granulocytes % (auto) 0.4 %; Lymphocytes # (auto) 1.27 K/uL (1.2-3.4); Lymphocytes % (auto) 8.4 %; Mean Corpuscular Hemoglobin 30.6 pg (25-34); Mean Corpuscular Hgb Conc 34.4 g/dL (32-36); Mean Corpuscular Volume 88.9 fL (80-100); Mean Platelet Volume 9.8 fL (7.4-10.4); Monocytes # (auto) 0.99 K/uL (0.11-0.59); Monocytes % (auto) 6.6 %; Neutrophils # (auto) 12.34 K/uL (1.4-6.5); Neutrophils % (auto) 82.1 %; Platelet Count 595 K/uL (130-400); RDW Coefficient of Variation 12.5 % (11.5-14.5); RDW Standard Deviation 40.4 fL (36.4-46.3); Red Blood Count 4.97 M/uL (4.2-5.4); White Blood Count 15.03 K/uL (4.8-10.8)
[2021-08-30] MEDS: guaiFENesin 600 MG TABCR PO SCH ×2 (08:05→19:45)
[2021-08-30] MEDS: dexAMETHasone 6 MG in SYRINGE 0 ML IV SCH (08:05)
[2021-08-30] MEDS: BENZONATATE 100 MG CAPSULE PO PRN ×2 (08:06→19:45)
[2021-08-30 08:22] LABS: BUN Creatinine Ratio 32.1 (10-20); Calcium 9.5 mg/dl (8.5-10.1); Creatinine Clr Calc Pharmacy 129.6 ml/min; Est GFR (African American) 121.9 ml/min; Est GFR (Non-African American) 105.1 ml/min; Magnesium 2.2 mg/dl (1.8-2.4); Potassium 3.4 mmol/L (3.5-5.1)
[2021-08-30 08:25] LABS: Albumin Globulin Ratio 0.6 (0.9-2); Bilirubin,Total 0.6 mg/dl (0.2-1); Globulin 5.2 gm/dl (2.5-4.0); Total Protein 8.2 gm/dl (6.4-8.2)
[2021-08-30] MEDS ORDERED: POTASSIUM CHLORIDE CRTAB 20 MEQ TABCR PO STA (11:46)
[2021-08-30] MEDS ORDERED: BUMETANIDE 2 MG in SYRINGE 0 ML IV ONE (12:45)
[2021-08-30] MEDS: LOPERAMIDE HCL 2 MG CAP PO PRN (13:10)
--- NOTE | 2021-08-30 15:00 | Hospitalist Progress Note ---
Date of Service August 30, 2021 Assessment & Plan (1) Hypoxia: (2) COVID-19: Plan: This is a 50yo F with a PMH of obesity presents from the pharmacy after being found to be hypoxic in the setting of covid (positive covid test 08/21/21). 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 At presentation, febrile at 38.1 C, saturating at 93% on 5 L NC, d-dimer 680, procal WNL. AST 154, ALT 110. Admitting procal negative CTA chest negative for pulmonary embolism. Covid isolation precautions BNP 08/24 --> 225, strict Is and O2, lasix as needed, one dose of lasix today 08/24 CRP 5.63 08/24 CXR worsening compared to admitting CXR. Continue IV dexamethasone 08/22, continue remdesivir 10/23 , incentive/flutter valve and proning Appreciate pulmonary input and recommendation She has been positive balance so far and will give another dose of Lasix of 60 mg IV today that is 08/25/2021 She has been agreeable to use CPAP as needed and be in prone position as far as she could tolerate to improve her condition The case was discussed with Dr. Taveras and was updated about her condition Clinically a little better but is still requiring high flow oxygen She has been proning as much as possible and she will be given another dose of Lasix today She has been feeling much better and the chest x-ray looks better too Clinically much better and remains in positive balance and is still requiring high flow oxygen to maintain saturation She has been feeling much better and says that today is the best day for her in the hospital She diuresed a lot and will get another dose of Bumex today Oxygen requirement has gone down to 40 L with minimal cough XOCHITL Has been complaining of anxiety symptoms and not being able to take any rest during the day and not at night She has been getting Ativan 0.5 mg p.o. twice daily as needed which will be increased to 3 times daily as needed She was warned against possible side effects of Ativan given respiratory condition Anxiety symptoms are improved (3) Hypokalemia: Plan: Will monitor and replace We will replace and monitor Potassium remains low at 3.0-adequate supplementation will be given as she has been on Lasix as well We will monitor potassium and also magnesium We will keep supplementing (4) Hypomagnesemia: Plan: In setting of GI losses. Monitor and replete as appropriate Level is normal (5) Nausea and vomiting: Plan: In setting of covid 19. Continue antiemetics PRN, IV fluid resuscitation, clear liquid diet and advance as tolerated No nausea, vomiting or diarrhea (6) Hypertension: Plan: Not on home medications. Continue with antihypertensives as needed Blood pressure remains on the upper side We will monitor and if needed we will add medications DVT Ppx: SQ lovenox Code status: FULL PCP: Fidelia Courtney Dispo: Admit to PCU Admission and Anticipated Discharge Date Admission Date: August 22, 2021 Subjective 08/25/2021 The patient was seen and examined in telemetry unit and in the Covid room She does not feel any better and still requiring high flow oxygen at 6 L/min with FiO2 100% to maintain saturation Trying to prone and has diminished cough Remains very anxious 08/26/2021 The patient was seen and examined in telemetry unit and in the Covid room She has been feeling little better but is still requiring 6 L at 100% FiO2 to maintain saturation Minimal cough and weakness has been improving 08/27/2021 The patient was seen and examined in telemetry unit and in the Covid room She has been feeling much better but remains very anxious Still requires high flow oxygen and the nurse is going to titrated down to maintain saturation She definitely wants to have another dose of Ativan to calm down which has been helping her a lot She was warned against side effects of Ativan especially with respiratory distress and she still wanted to have it 08/28/2021 The patient was seen and examined in telemetry unit and in the Covid room She has been feeling better but is still requires high flow oxygen to maintain saturation She remains in positive balance 08/29/2021 The patient was seen and examined in telemetry unit and in the Covid room She has been feeling a little better and oxygen requirements has gone down to 50 L/min instead of 60 Still has cough and remains anxious 08/30/2021 The patient was seen and examined in telemetry unit and in the Covid room Today is the best day for her in the hospital She has less cough and minimal shortness of breath at rest Review of Systems Review of Systems: All systems reviewed and are unremarkable except as noted below Respiratory: Moderate shortness of breath at rest with cough Physical Exam Physical Exam: Lying in bed with moderate shortness of breath Constitutional: well developed, well nourished, + ill appearing and + obese Eyes: PERRL, conjunctivae normal, anicteric sclerae ENMT: external ear and nose normal, oropharynx normal Neck: trachea midline, no thyromegaly Respiratory: + respiratory distress and + retractions Auscultation: + diminished lung sounds and + crackles (At the bases) Cardiovascular: Rate/Rhythm: regular rate, regular rhythm and + tachycardic Heart Sounds: normal S1 and normal S2 Extremities: + edema (Trace edema bilaterally) Gastrointestinal (Abdomen): Inspection/Auscultation: normal bowel sounds Percussion/Palpation: abdomen soft; abdomen nontender Musculoskeletal: No acute arthritis in any joint Psychiatric: A+Ox3, euthymic affect Lymphatic: no cervical or axillary lymphadenopathy Results & Data Results & Data ([facility]) Vital Signs (Past 12 Hours) Vital Signs Temp Pulse Pulse Pulse Resp BP Pulse Ox 08/30/21 11:49 37.1 C 89 24 121/76 91 08/30/21 11:44 87 16 94 08/30/21 07:56 37.0 C 91 H 22 100/72 92 08/30/21 07:45 91 H 08/30/21 03:25 90 24 91 08/30/21 02:59 91 Laboratory Results Short CBC 08/30/21 Range/Units 06:42 WBC 15.03 H (4.8-10.8) K/uL Hgb 15.2 (12.0-16.0) g/dL Hct 44.2 (37-47) % Plt Count 595 H (130-400) K/uL BMP 08/30/21 06:42 Sodium 132 L Potassium 3.4 L Chloride 95 L Carbon Dioxide 26 BUN 20 H Creatinine 0.62 Glucose 155 H Calcium 9.5 Liver Function 08/30/21 Range/Units 06:42 Total Bilirubin 0.6 (0.2-1) mg/dl AST 32 (15-37) U/L ALT 55 (12-78) Alkaline Phosphatase 63 (45-117) U/L Albumin 3.0 L (3.4-5.0) gm/dl Medications Administered Current Inpatient Medications Acetaminophen (Acetaminophen 325 Mg Tab) 650 mg PO Q4H PRN PRN Reason: Pain or Fever Stop: 09/21/21 21:42 Last Admin: 08/30/21 08:05 Dose: 650 mg Documented by: Benzonatate (Benzonatate 100 Mg Capsule) 100 mg PO TID PRN PRN Reason: Cough Stop: 09/21/21 21:42 Last Admin: 08/30/21 08:06 Dose: 100 mg Documented by: Enoxaparin Sodium (Enoxaparin Inj 40 Mg/0.4 Ml Syr) 40 mg SQ Q24H [place] Stop: 09/21/21 21:59 Last Admin: 08/29/21 20:55 Dose: 40 mg Documented by: Guaifenesin (Guaifenesin 600 Mg Tabcr) 1,200 mg PO Q12 [place] Stop: 09/28/21 20:59 Last Admin: 08/30/21 08:05 Dose: 1,200 mg Documented by: Hydrocodone Bit/Homatropine Methylb (Hydrocodone/Homatropine Syrup 5mg/1.5mg 5ml Udp) 5 ml PO Q6H [place] Stop: 09/12/21 11:59 Last Admin: 08/30/21 13:02 Dose: 5 ml Documented by: Dexamethasone 6 mg/ Syringe 1.5 mls @ 1 mls/min IV DAILY [place] Stop: 09/02/21 08:59 Last Admin: 08/30/21 08:05 Dose: 1 mls/min Documented by: Loperamide HCl (Loperamide Hcl 2 Mg Cap) 2 mg PO Q3H PRN PRN Reason: Diarrhea Stop: 09/24/21 09:52 Last Admin: 08/30/21 13:10 Dose: 2 mg Documented by: Lorazepam (Lorazepam 0.5 Mg Tab) 0.5 mg PO TID PRN PRN Reason: Anxiety Stop: 09/25/21 20:43 Last Admin: 08/29/21 20:54 Dose: 0.5 mg Documented by: Melatonin (Melatonin 3 Mg Tab) 3 mg PO HS PRN PRN Reason: Sleep Stop: 09/23/21 18:21 Last Admin: 08/29/21 20:54 Dose: 3 mg Documented by: Ondansetron HCl (Ondansetron Inj 2 Mg/Ml 2 Ml Vial) 4 mg IV Q6H PRN PRN Reason: Nausea Stop: 09/21/21 21:42 Polyethylene Glycol (Polyethylene (Miralax) 17 Gm Pack) 17 gm PO DAILY PRN PRN Reason: Constipation Stop: 09/21/21 21:42
[2021-08-30] MEDS: CALCIUM CARBONATE 500 MG CHEWABLE TAB PO PRN (19:44)
[2021-08-30] MEDS: ENOXAPARIN INJ 40 MG/0.4 ML SYR SQ SCH (22:47)
[2021-08-30] MEDS: MELATONIN 3 MG TAB PO PRN (23:32)
[2021-08-31] MEDS: HYDROcodone/HOMATROPINE SYRUP 5MG/1.5MG 5ML UDP PO SCH ×4 (06:14→23:11)
[2021-08-31] MEDS: ACETAMINOPHEN 325 MG TAB PO PRN ×3 (06:17→23:12)
[2021-08-31 08:06] LABS: Basophils # (auto) 0.02 K/uL (0-0.2); Basophils % (auto) 0.2 %; Eosinophils # (auto) 0.17 K/uL (0-0.5); Eosinophils % (auto) 1.8 %; Hematocrit (blood only) 42.3 % (37-47); Hemoglobin 14.6 g/dL (12.0-16.0); Immature Granulocytes # (auto) 0.05 K/uL (0.00-0.02); Immature Granulocytes % (auto) 0.5 %; Lymphocytes # (auto) 1.55 K/uL (1.2-3.4); Lymphocytes % (auto) 16.7 %; Mean Corpuscular Hemoglobin 30.7 pg (25-34); Mean Corpuscular Hgb Conc 34.5 g/dL (32-36); Mean Corpuscular Volume 88.9 fL (80-100); Mean Platelet Volume 9.5 fL (7.4-10.4); Monocytes % (auto) 8.6 %; Neutrophils # (auto) 6.71 K/uL (1.4-6.5); Neutrophils % (auto) 72.2 %; Platelet Count 497 K/uL (130-400); RDW Coefficient of Variation 12.3 % (11.5-14.5); RDW Standard Deviation 39.7 fL (36.4-46.3); Red Blood Count 4.76 M/uL (4.2-5.4)
[2021-08-31] MEDS: guaiFENesin 600 MG TABCR PO SCH ×2 (08:11→23:11)
[2021-08-31] MEDS: dexAMETHasone 6 MG in SYRINGE 0 ML IV SCH (08:11)
[2021-08-31 08:36] LABS: Calcium 9.4 mg/dl (8.5-10.1); Est GFR (African American) 123.9 ml/min; Est GFR (Non-African American) 106.9 ml/min; Magnesium 2.1 mg/dl (1.8-2.4); Potassium 3.5 mmol/L (3.5-5.1)
[2021-08-31] MEDS ORDERED: POTASSIUM CHLORIDE CRTAB 20 MEQ TABCR PO STA (12:20)
[2021-08-31] MEDS ORDERED: BUMETANIDE 2 MG in SYRINGE 0 ML IV ONE (12:30)
--- NOTE | 2021-08-31 15:16 | Hospitalist Progress Note ---
Date of Service August 31, 2021 Assessment & Plan (1) Hypoxia: (2) COVID-19: Plan: This is a 50yo F with a PMH of obesity presents from the pharmacy after being found to be hypoxic in the setting of covid (positive covid test 08/21/21). She is not vaccinated for COVID-19 virus Symptomatic for 5 days [employer], received monoclonal antibodies at pharmacy on the day of arrival, found to be hypoxic in 70s and directed to ED for further evaluation admitting CXR with Multifocal bilateral airspace opacities are suggestive of viral pneumonia. At presentation, febrile at 38.1 C, saturating at 93% on 5 L NC, d-dimer 680, procal WNL. AST 154, ALT 110. Admitting procal negative CTA chest negative for pulmonary embolism. Covid isolation precautions BNP 08/24 --> 225, strict Is and O2, lasix as needed, one dose of lasix today 08/24 CRP 5.63 08/24 CXR worsening compared to admitting CXR. Continue IV dexamethasone 08/22, continue remdesivir 10/23 , incentive/flutter valve and proning Appreciate pulmonary input and recommendation She has been positive balance so far and will give another dose of Lasix of 60 mg IV today that is 08/25/2021 She has been agreeable to use CPAP as needed and be in prone position as far as she could tolerate to improve her condition The case was discussed with Dr. Taveras and was updated about her condition Clinically a little better but is still requiring high flow oxygen She has been proning as much as possible and she will be given another dose of Lasix today She has been feeling much better and the chest x-ray looks better too Clinically much better and remains in positive balance and is still requiring high flow oxygen to maintain saturation She has been feeling much better and says that today is the best day for her in the hospital She has been getting Bumex for the last 2 days and will receive another dose today Her oxygen requirements has gone down to 8 L and will titrated further down Her anxiety and cough are better XOCHITL Has been complaining of anxiety symptoms and not being able to take any rest during the day and not at night She has been getting Ativan 0.5 mg p.o. twice daily as needed which will be increased to 3 times daily as needed She was warned against possible side effects of Ativan given respiratory con dition Anxiety symptoms are improved (3) Hypokalemia: Plan: Will monitor and replace We will replace and monitor Potassium remains low at 3.0-adequate supplementation will be given as she has been on Lasix as well We will monitor potassium and also magnesium We will check PRP tomorrow (4) Hypomagnesemia: Plan: In setting of GI losses. Monitor and replete as appropriate Level is normal (5) Nausea and vomiting: Plan: In setting of covid 19. Continue antiemetics PRN, IV fluid resuscitation, clear liquid diet and advance as tolerated No nausea, vomiting or diarrhea No more nausea and or vomiting (6) Hypertension: Plan: Not on home medications. Continue with antihypertensives as needed Blood pressure remains on the upper side We will monitor and if needed we will add medications DVT Ppx: SQ lovenox Code status: FULL PCP: Fidelia Courtney Dispo: Admit to PCU Admission and Anticipated Discharge Date Admission Date: August 22, 2021 Subjective 08/25/2021 The patient was seen and examined in telemetry unit and in the Covid room She does not feel any better and still requiring high flow oxygen at 6 L/min with FiO2 100% to maintain saturation Trying to prone and has diminished cough Remains very anxious 08/26/2021 The patient was seen and examined in telemetry unit and in the Covid room She has been feeling little better but is still requiring 6 L at 100% FiO2 to maintain saturation Minimal cough and weakness has been improving 08/27/2021 The patient was seen and examined in telemetry unit and in the Covid room She has been feeling much better but remains very anxious Still requires high flow oxygen and the nurse is going to titrated down to maintain saturation She definitely wants to have another dose of Ativan to calm down which has been helping her a lot She was warned against side effects of Ativan especially with respiratory distress and she still wanted to have it 08/28/2021 The patient was seen and examined in telemetry unit and in the Covid room She has been feeling better but is still requires high flow oxygen to maintain saturation She remains in positive balance 08/29/2021 The patient was seen and examined in telemetry unit and in the Covid room She has been feeling a little better and oxygen requirements has gone down to 50 L/min instead of 60 Still has cough and remains anxious 08/30/2021 The patient was seen and examined in telemetry unit and in the Covid room Today is the best day for her in the hospital She has less cough and minimal shortness of breath at rest 08/31/2021 The patient was seen and examined in telemetry unit and in the Covid room She has been feeling much better today and still has minimal cough and minimal shortness of breath She has been requiring 8 L to maintain saturation Review of Systems Review of Systems: All systems reviewed and are unremarkable except as noted below Respiratory: Minimal shortness of breath at rest with cough Physical Exam Physical Exam: Lying in bed with moderate shortness of breath Constitutional: well developed, well nourished, + ill appearing and + obese Eyes: PERRL, conjunctivae normal, anicteric sclerae ENMT: external ear and nose normal, oropharynx normal Neck: trachea midline, no thyromegaly Respiratory: + respiratory distress and + retractions Auscultation: + diminished lung sounds and + crackles (At the bases) Cardiovascular: Rate/Rhythm: regular rate, regular rhythm and + tachycardic Heart Sounds: normal S1 and normal S2 Extremities: + edema (Trace edema bilaterally) Gastrointestinal (Abdomen): Inspection/Auscultation: normal bowel sounds Percussion/Palpation: abdomen soft; abdomen nontender Musculoskeletal: No acute arthritis in any joint Neurologic: Alert, awake and oriented x3. No focal sensory and motor deficit appreciated Psychiatric: A+Ox3, euthymic affect Lymphatic: no cervical or axillary lymphadenopathy Results & Data Results & Data ([facility]) Vital Signs (Past 12 Hours) Vital Signs Temp Pulse Pulse Resp BP Pulse Ox 08/31/21 07:53 71 08/31/21 07:45 37.6 C H 74 19 127/82 94 Laboratory Results Short CBC 08/31/21 Range/Units 07:29 WBC 9.30 (4.8-10.8) K/uL Hgb 14.6 (12.0-16.0) g/dL Hct 42.3 (37-47) % Plt Count 497 H (130-400) K/uL BMP 08/31/21 07:29 Sodium 132 L Potassium 3.5 Chloride 96 L Carbon Dioxide 26 BUN 18 Creatinine 0.59 L Glucose 156 H Calcium 9.4 Medications Administered Current Inpatient Medications Acetaminophen (Acetaminophen 325 Mg Tab) 650 mg PO Q4H PRN PRN Reason: Pain or Fever Stop: 09/21/21 21:42 Last Admin: 08/31/21 11:15 Dose: 650 mg Documented by: Benzonatate (Benzonatate 100 Mg Capsule) 100 mg PO TID PRN PRN Reason: Cough Stop: 09/21/21 21:42 Last Admin: 08/30/21 19:45 Dose: 100 mg Documented by: Calcium Carbonate (Calcium Carbonate 500 Mg Chewable Tab) 500 mg PO Q6 PRN PRN Reason: Indigestion Stop: 09/29/21 18:44 Last Admin: 08/30/21 19:44 Dose: 500 mg Documented by: Enoxaparin Sodium (Enoxaparin Inj 40 Mg/0.4 Ml Syr) 40 mg SQ Q24H [place] Stop: 09/21/21 21:59 Last Admin: 08/30/21 22:47 Dose: 40 mg Documented by: Guaifenesin (Guaifenesin 600 Mg Tabcr) 1,200 mg PO Q12 [place] Stop: 09/28/21 20:59 Last Admin: 08/31/21 08:11 Dose: 1,200 mg Documented by: Hydrocodone Bit/Homatropine Methylb (Hydrocodone/Homatropine Syrup 5mg/1.5mg 5ml Udp) 5 ml PO Q6H [place] Stop: 09/12/21 11:59 Last Admin: 08/31/21 12:59 Dose: 5 ml Documented by: Dexamethasone 6 mg/ Syringe 1.5 mls @ 1 mls/min IV DAILY [place] Stop: 09/02/21 08:59 Last Admin: 08/31/21 08:11 Dose: 1 mls/min Documented by: Loperamide HCl (Loperamide Hcl 2 Mg Cap) 2 mg PO Q3H PRN PRN Reason: Diarrhea Stop: 09/24/21 09:52 Last Admin: 08/30/21 13:10 Dose: 2 mg Documented by: Lorazepam (Lorazepam 0.5 Mg Tab) 0.5 mg PO TID PRN PRN Reason: Anxiety Stop: 09/25/21 20:43 Last Admin: 08/29/21 20:54 Dose: 0.5 mg Documented by: Melatonin (Melatonin 3 Mg Tab) 3 mg PO HS PRN PRN Reason: Sleep Stop: 09/23/21 18:21 Last Admin: 08/30/21 23:32 Dose: 3 mg Documented by: Ondansetron HCl (Ondansetron Inj 2 Mg/Ml 2 Ml Vial) 4 mg IV Q6H PRN PRN Reason: Nausea Stop: 09/21/21 21:42 Polyethylene Glycol (Polyethylene (Miralax) 17 Gm Pack) 17 gm PO DAILY PRN PRN Reason: Constipation Stop: 09/21/21 21:42
[2021-08-31] MEDS: BENZONATATE 100 MG CAPSULE PO PRN (19:33)
[2021-08-31] MEDS: ENOXAPARIN INJ 40 MG/0.4 ML SYR SQ SCH (23:11)
[2021-08-31] MEDS: MELATONIN 3 MG TAB PO PRN (23:11)
[2021-09-01] MEDS: HYDROcodone/HOMATROPINE SYRUP 5MG/1.5MG 5ML UDP PO SCH ×2 (05:45→12:39)
[2021-09-01 07:01] LABS: BUN Creatinine Ratio 25.4 (10-20); Calcium 9.2 mg/dl (8.5-10.1); Creatinine Clr Calc Pharmacy 128.3 ml/min; Est GFR (African American) 121.2 ml/min; Est GFR (Non-African American) 104.6 ml/min; Potassium 3.5 mmol/L (3.5-5.1)
[2021-09-01] MEDS: dexAMETHasone 6 MG in SYRINGE 0 ML IV SCH (09:15)
[2021-09-01] MEDS: BENZONATATE 100 MG CAPSULE PO PRN ×2 (09:15→21:29)
[2021-09-01] MEDS: guaiFENesin 600 MG TABCR PO SCH ×2 (09:16→21:29)
--- NOTE | 2021-09-01 17:12 | Hospitalist Progress Note ---
Date of Service September 01, 2021 Assessment & Plan (1) Acute respiratory failure: Plan: 2/2 covid pneumonia (2) Pneumonia due to COVID-19 virus: Plan: Patient symptomatic for approximately 2 weeks, received a monoclonal antibodies at a pharmacy on the day she arrived to the ER Hypoxic in the 70s with chest x-ray revealing multifocal bilateral airspace opacities suggestive of viral pneumonia Febrile on presentation, fevers have now resolved D-dimer elevated to 680 and CTA chest was negative for pulmonary embolism Started on dexamethasone and remdesivir Intermittent Lasix given throughout this hospital stay There has been an improvement in oxygen requirement and her symptoms are overall much better She is eager for discharge home, we discussed discharge goals including no more than 4 L/min with ambulation. (3) Hypokalemia: Plan: resolved (4) Hypomagnesemia: Plan: resolved (5) DVT prophylaxis: Plan: Lovenox Full Dispo-to home when off oxygen or improved, medically stable. Flor Moraes DO [facility] Hospitalist Admission and Anticipated Discharge Date Admission Date: August 22, 2021 Subjective 51-year-old female admitted with pneumonia secondary to Covid virus Reports feeling much better Very eager for discharge prior to [place] and to be connected with her young children again Tolerating p.o. Afebrile Coughing improved Breathing improved and currently on 4 L/min via nasal cannula oxygenating 94%. reports ambulating independently in the room and no dyspnea with exertion. Review of Systems Review of Systems: All systems were reviewed and negative except as indicated above. Physical Exam Physical Exam: CONSTITUTIONAL: WNWD, vitals as above, generally well- appearing, NAD EYES: normal conjunctivae, no scleral icterus ENT: external ear and nose normal, MMM NECK: trachea midline, RESPIRATORY: clear to auscultation bilaterally, no crackles, rales or wheezes, normal respiratory effort CARDIOVASCULAR: regular rate and rhythm, S1 and 2 heard without murmurs, gallops or rubs, no JVD, no peripheral edema GASTROINTESTINAL: soft, nontender ND, no guarding MUSCULOSKELETAL: strength 5/5 throughout, head is normocephalic and atraumatic, neck supple, normal palpation of chest wall without tenderness SKIN: warm and dry NEUROLOGIC: CN 2-12 grossly intact, no sensory deficit, normal cognition, normal speech, no tremor, no gross focal deficits. PSYCHIATRIC: alert cooperative and oriented to person, place and time. Euthymic mood, makes good eye contact, language grossly intact, recent and remote memory grossly intact. Results & Data Results & Data ([facility] [place]) Vital Signs (Past 12 Hours) Vital Signs Temp Pulse Pulse Pulse Resp BP Pulse Ox 09/01/21 15:58 09/01/21 15:13 36.9 C 76 14 129/78 94 09/01/21 15:09 86 09/01/21 13:09 09/01/21 11:33 88 19 131/78 96 Pulse Ox 09/01/21 15:58 94 09/01/21 15:13 09/01/21 15:09 09/01/21 13:09 95 09/01/21 11:33 Laboratory Results BMP 09/01/21 06:10 Sodium 132 L Potassium 3.5 Chloride 97 L Carbon Dioxide 27 BUN 16 Creatinine 0.63 Glucose 167 H Calcium 9.2 Medications Administered Current Inpatient Medications Acetaminophen (Acetaminophen 325 Mg Tab) 650 mg PO Q4H PRN PRN Reason: Pain or Fever Stop: 09/21/21 21:42 Last Admin: 08/31/21 23:12 Dose: 650 mg Documented by: Benzonatate (Benzonatate 100 Mg Capsule) 100 mg PO TID PRN PRN Reason: Cough Stop: 09/21/21 21:42 Last Admin: 09/01/21 09:15 Dose: 100 mg Documented by: Calcium Carbonate (Calcium Carbonate 500 Mg Chewable Tab) 500 mg PO Q6 PRN PRN Reason: Indigestion Stop: 09/29/21 18:44 Last Admin: 08/30/21 19:44 Dose: 500 mg Documented by: Enoxaparin Sodium (Enoxaparin Inj 40 Mg/0.4 Ml Syr) 40 mg SQ Q24H [place] Stop: 09/21/21 21:59 Last Admin: 08/31/21 23:11 Dose: 40 mg Documented by: Guaifenesin (Guaifenesin 600 Mg Tabcr) 1,200 mg PO Q12 [place] Stop: 09/28/21 20:59 Last Admin: 09/01/21 09:16 Dose: 1,200 mg Documented by: Hydrocodone Bit/Homatropine Methylb (Hydrocodone/Homatropine Syrup 5mg/1.5mg 5ml Udp) 5 ml PO Q6H [place] Stop: 12/28/21 11:59 Last Admin: 09/01/21 12:39 Dose: 5 ml Documented by: Dexamethasone 6 mg/ Syringe 1.5 mls @ 1 mls/min IV DAILY [place] Stop: 09/02/21 08:59 Last Admin: 09/01/21 09:15 Dose: 1 mls/min Documented by: Loperamide HCl (Loperamide Hcl 2 Mg Cap) 2 mg PO Q3H PRN PRN Reason: Diarrhea Stop: 09/24/21 09:52 Last Admin: 08/30/21 13:10 Dose: 2 mg Documented by: Lorazepam (Lorazepam 0.5 Mg Tab) 0.5 mg PO TID PRN PRN Reason: Anxiety Stop: 09/25/21 20:43 Last Admin: 08/29/21 20:54 Dose: 0.5 mg Documented by: Melatonin (Melatonin 3 Mg Tab) 3 mg PO HS PRN PRN Reason: Sleep Stop: 09/23/21 18:21 Last Admin: 08/31/21 23:11 Dose: 3 mg Documented by: Ondansetron HCl (Ondansetron Inj 2 Mg/Ml 2 Ml Vial) 4 mg IV Q6H PRN PRN Reason: Nausea Stop: 09/21/21 21:42 Polyethylene Glycol (Polyethylene (Miralax) 17 Gm Pack) 17 gm PO DAILY PRN PRN Reason: Constipation Stop: 09/21/21 21:42
[2021-09-01] MEDS ORDERED: HYDROcodone/HOMATROPINE SYRUP 5MG/1.5MG 5ML UDP PO PRN (17:51)
[2021-09-01] MEDS: ACETAMINOPHEN 325 MG TAB PO PRN (21:28)
[2021-09-01] MEDS: ENOXAPARIN INJ 40 MG/0.4 ML SYR SQ SCH (21:29)
[2021-09-01] MEDS: MELATONIN 3 MG TAB PO PRN (21:29)
[2021-09-01] MEDS: CALCIUM CARBONATE 500 MG CHEWABLE TAB PO PRN (21:29)
[2021-09-02] MEDS: ACETAMINOPHEN 325 MG TAB PO PRN (09:36)
[2021-09-02] MEDS: guaiFENesin 600 MG TABCR PO SCH (09:36)
[2021-09-02] MEDS: BENZONATATE 100 MG CAPSULE PO PRN (09:36)
[2021-09-02 10:04] LABS: Hematocrit (blood only) 41.5 % (37-47); Mean Corpuscular Hemoglobin 30.4 pg (25-34); Mean Corpuscular Hgb Conc 33.7 g/dL (32-36); Mean Corpuscular Volume 90.2 fL (80-100); Mean Platelet Volume 9.6 fL (7.4-10.4); Platelet Count 524 K/uL (130-400); RDW Coefficient of Variation 12.5 % (11.5-14.5); RDW Standard Deviation 41.2 fL (36.4-46.3); White Blood Count 9.88 K/uL (4.8-10.8)
[2021-09-02 10:37] LABS: BUN Creatinine Ratio 21.9 (10-20); C Reactive Protein 0.6 mg/dl (0-0.29); Calcium 9.1 mg/dl (8.5-10.1); Creatinine Clr Calc Pharmacy 110.8 ml/min; Est GFR (African American) 111.3 ml/min; Potassium 3.2 mmol/L (3.5-5.1)
[2021-09-02] MEDS ORDERED: POTASSIUM CHLORIDE CRTAB 20 MEQ TABCR PO STA (11:54)
--- NOTE | 2021-09-02 15:25 | Discharge Summary ---
Date of Service September 02, 2021 Admission HPI Per Admitting Provider This is a 50yo F with a PMH of obesity presents from the pharmacy after being found to be hypoxic in the setting of covid (positive covid test yesterday, 08/21/21). was diagnosed with Covid last week and patient has been symptomatic for 5 days, starting with nausea, vomiting and diarrhea. Also endorses fever (tmax 101 F), chills, body aches, cough, congestion, runny nose and shortness of breath. Has had difficulty keeping anything down for 3 days despite trying to drink Gatorade. Did receive monoclonal antibodies at the pharmacy today. Oxygen saturation was in the 70s and patient was sent to ED for further evaluation. Does not take any home medications. Did not receive Covid vaccine. Denies lightheadedness, chest pain, palpitations, dysuria, diarrhea or constipation. Admission Exam Per Admitting Provider Exam: -Mild respiratory distress, NC in place -Lungs: B/L diffuse rales -Cardiac: normal S1/S2, no murmur -Abd: ND, NT, soft -MSk: no LE edema -Psych: AAOx3 and normal Affect Principal Diagnosis Acute respiratory failure-resolved Pneumonia secondary to COVID-19 virus Discharge Exam CONSTITUTIONAL: WNWD, vitals as above, generally well-appearing, NAD EYES: normal conjunctivae, no scleral icterus ENT: external ear and nose normal, MMM NECK: trachea midline, RESPIRATORY: clear to auscultation bilaterally, no crackles, rales or wheezes, normal respiratory effort CARDIOVASCULAR: regular rate and rhythm, S1 and 2 heard without murmurs, gallops or rubs, no JVD, no peripheral edema GASTROINTESTINAL: soft, nontender ND, no guarding MUSCULOSKELETAL: strength 5/5 throughout, head is normocephalic and atraumatic, neck supple, normal palpation of chest wall without tenderness SKIN: warm and dry NEUROLOGIC: CN 2-12 grossly intact, no sensory deficit, normal cognition, normal speech, no tremor, no gross focal deficits. PSYCHIATRIC: alert cooperative and oriented to person, place and time. Euthymic mood, makes good eye contact, language grossly intact, recent and remote memory grossly intact. Discharge Data Allergies Allergy/AdvReac Type Severity Reaction Status Date / Time latex Allergy Intermediate Rash Verified 08/22/21 19:24 Consultations 08/22/21 18:22 ED Decision to Admit Stat 08/24/21 07:36 Consult Pulmonology Routine Ordered Studies Laboratory Results WBC 9.88 K/uL (4.8-10.8) 09/02/21 09:22 RBC 4.60 M/uL (4.2-5.4) 09/02/21 09:22 Hgb 14.0 g/dL (12.0-16.0) 09/02/21 09:22 Hct 41.5 % (37-47) 09/02/21 09:22 MCV 90.2 fL (80-100) 09/02/21 09:22 MCH 30.4 pg (25-34) 09/02/21 09: MCHC 33.7 g/dL (32-36) 09/02/21 09:22 RDW Std Deviation 41.2 fL (36.4-46.3) 09/02/21 09:22 RDW Coeff of Amanda 12.5 % (11.5-14.5) 09/02/21 09:22 Plt Count 524 K/uL (130-400) H 09/02/21 09:22 MPV 9.6 fL (7.4-10.4) 09/02/21 09:22 Immature Gran % (Auto) 0.5 % 08/31/21 07:29 Neut % (Auto) 72.2 % 08/31/21 07:29 Lymph % (Auto) 16.7 % 08/31/21 07:29 [place] % (Auto) 8.6 % 08/31/21 07:29 Eos % (Auto) 1.8 % 08/31/21 07:29 Baso % (Auto) 0.2 % 08/31/21 07:29 Neut # (Auto) 6.71 K/uL (1.4-6.5) H 08/31/21 07:29 Lymph # (Auto) 1.55 K/uL (1.2-3.4) 08/31/21 07:29 [place] # (Auto) 0.80 K/uL (0.11-0.59) H 08/31/21 07:29 Eos # (Auto) 0.17 K/uL (0-0.5) 08/31/21 07:29 Baso # (Auto) 0.02 K/uL (0-0.2) 08/31/21 07:29 Immature Gran # (Auto) 0.05 K/uL (0.00-0.02) H 08/31/21 07:29 D-Dimer 680 ug/L FEU (0-500) H* 08/22/21 18:00 ABG pH 7.48 (7.35-7.45) H 08/22/21 18:54 ABG pCO2 35 mmHg (35-46) 08/22/21 18:54 ABG pO2 73 mmHg (80-95) L 08/22/21 18:54 ABG HCO3 25 mmol/L (19-24) H 08/22/21 18:54 ABG O2 Saturation 95.5 % (90-95) H 08/22/21 18:54 ABG Base Excess 2.2 mEq/L (-9-1.8) H 08/22/21 18:54 Jake Test POS (Pos) 08/22/21 18:54 Barometric Pressure 735.7 mm/Hg 08/22/21 18:54 Oxygen Given 4L O2 08/22/21 18:54 Sodium 135 mmol/L (136-145) L 09/02/21 09:22 Potassium 3.2 mmol/L (3.5-5.1) L 09/02/21 09:22 Chloride 97 mmol/L (98-107) L 09/02/21 09:22 Carbon Dioxide 27 mmol/L (21-32) 09/02/21 09:22 Anion Gap 10.0 (3-11) 09/02/21 09:22 BUN 16 mg/dl (7-18) 09/02/21 09:22 Creatinine 0.73 mg/dl (0.6-1.2) 09/02/21 09:22 Est Cr Clr Drug Dosing 110.8 ml/min 09/02/21 09:22 Est GFR ( Amer) 111.3 ml/min 09/02/21 09:22 Est GFR (Non-Af Amer) 96.0 ml/min 09/02/21 09:22 BUN/Creatinine Ratio 21.9 (10-20) H 09/02/21 09:22 Glucose 249 mg/dl (70-99) H 09/02/21 09:22 Calcium 9.1 mg/dl (8.5-10.1) 09/02/21 09:22 Phosphorus 3.0 mg/dl (2.5-4.9) 08/28/21 05:37 Magnesium 2.1 mg/dl (1.8-2.4) 08/31/21 07:29 Total Bilirubin 0.6 mg/dl (0.2-1) 08/30/21 06:42 Direct Bilirubin 0.1 mg/dl (0-0.2) 08/27/21 07:34 AST 32 U/L (15-37) 08/30/21 06:42 ALT 55 (12-78) 08/30/21 06:42 Alkaline Phosphatase 63 U/L (45-117) 08/30/21 06:42 C-Reactive Protein 0.60 mg/dl (0-0.29) H 09/02/21 09:22 NT-Pro-B Natriuret Pep 225 pg/ml (0-450) 08/24/21 07:05 Total Protein 8.2 gm/dl (6.4-8.2) 08/30/21 06:42 Albumin 3.0 gm/dl (3.4-5.0) L 08/30/21 06:42 Globulin 5.2 gm/dl (2.5-4.0) H 08/30/21 06:42 Albumin/Globulin Ratio 0.6 (0.9-2) L 08/30/21 06:42 Procalcitonin 0.05 ng/ml (0-0.5) 08/26/21 05:15 Urine Color Yellow 08/22/21 22:45 Urine Appearance Clear (Clear) 08/22/21 22:45 Urine pH 6.0 (4.5-7.5) 08/22/21 22:45 Ur Specific [place] > 1.045 (1.000-1.030) H 08/22/21 22:45 Urine Protein Negative (Negative) 08/22/21 22:45 Urine Glucose (UA) 1+ (Negative) H 08/22/21 22:45 Urine Ketones 2+ (Negative) H 08/22/21 22:45 Urine Blood 2+ (Negative) H 08/22/21 22:45 Urine Nitrite Negative (Negative) 08/22/21 22:45 Urine Bilirubin Negative (Negative) 08/22/21 22:45 Urine Urobilinogen Negative (Negative) 08/22/21 22:45 Ur Leukocyte Esterase Negative (Negative) 08/22/21 22:45 Urine WBC (Auto) 1-5 /hpf (0-5) 08/22/21 22:45 Urine RBC (Auto) 0-4 /hpf (0-4) 08/22/21 22:45 U Hyaline Cast (Auto) 0 /lpf (0-5) 08/22/21 22:45 U Epithel Cells (Auto) 10-20 /lpf (0-5) H 08/22/21 22:45 Urine Bacteria (Auto) Negative (Negative) 08/22/21 22:45 Stl C. diff Tox B Gene Negative Cdiff Gene (Neg) 08/25/21 Unknown SARS-CoV-2 (PCR) POSITIVE (Negative) A* 08/22/21 Unknown Influenza Type A (PCR) Negative (Neg) 08/22/21 Unknown Influenza Type B (PCR) Negative (Neg) 08/22/21 Unknown RSV (RT-PCR) Negative (Neg) 08/22/21 Unknown Impressions Chest CTA 08/22/21 20:05 CT angio chest PE protocol CT DOSE: 702.04 mGy.cm HISTORY: 50 years-old Female with PE. Acute shortness of breath. COVID Positive. TECHNIQUE: Multiple CTA images of the chest were obtained after the intravenous administration of 120 ml Optiray. Coronal and sagittal MIPS were obtained from the axial data set and were submitted for review. All measurements were obtained according to NASCET criteria. A dose lowering technique was utilized adhering to the principles of ALARA. COMPARISON: Chest radiographs of same day FINDINGS: CTA: The heart is normal in size without pericardial effusion. Mild coronary artery calcifications. No thoracic aortic aneurysm or dissection. Unremarkable pulmonary artery. No pulmonary emboli. CT CHEST: 10 mm hypodense nodule of the inferior right thyroid lobe medially. No pathologically enlarged lymph nodes. Mildly prominent mediastinal and hilar lymph nodes are likely reactive. The inferior lung bases are only partially imaged. There is no pneumothorax or pleural effusion. Multifocal bilateral intermixed groundglass and consolidative opacities are noted within all lobes bilaterally. Central airways are patent. Hepatic steatosis. Tiny hiatal hernia. Unremarkable soft tissues. No acute fracture. Left shoulder rotator cuff calcific tendinosis. IMPRESSION: 1. No pulmonary emboli. 2. Extensive multifocal viral pneumonia. 3. Mild coronary artery calcifications. 4. Hepatic steatosis. ACT 112: Negative or not required by law. The above report was generated using voice recognition software. It may contain grammatical, syntax or spelling errors. Electronically signed by: Filemon Bower M.D. 08/23/2021 8:04 AM Chest X-Ray 08/27/21 10:29 XR chest 1V portable CLINICAL HISTORY: Covid pneumonia TECHNIQUE: Single frontal radiograph of the chest was obtained. Comparison: Comparison is made to chest one view 08/24/2021 FINDINGS: No lines and tubes are seen. The cardiomediastinal silhouette is normal. Multifocal airspace opacities are seen. No evidence of pleural effusion or pneumothorax. IMPRESSION: Multifocal airspace opacities compatible with history of Covid pneumonia. ACT 112: Negative or not required by law. Electronically signed by: Robert House M.D. 08/27/2021 11:01 AM Hospital Course (1) Acute respiratory failure: 2/2 covid pneumonia (2) Pneumonia due to COVID-19 virus: Patient symptomatic for approximately 2 weeks, received a monoclonal antibodies at a pharmacy on the day she arrived to the ER Hypoxic in the 70s with chest x-ray revealing multifocal bilateral airspace opacities suggestive of viral pneumonia Febrile on presentation, fevers have now resolved D-dimer elevated to 680 and CTA chest was negative for pulmonary embolism Started on dexamethasone and remdesivir Intermittent Lasix given throughout this hospital stay There has been an improvement in oxygen requirement and her symptoms are overall much better She is eager for discharge home, we discussed discharge goals including no more than 4 L/min with ambulation. she was able to pass a 2 step test with no need for oxygen on discharge and was sent home in stable condition. She did opt to have oxygen with her on hand and this was prescribed at discharge for her comfort. Close primary care followup recommended when off home isolation. (3) Hypokalemia: resolved (4) Hypomagnesemia: resolved (5) DVT prophylaxis: Lovenox Full Dispo-to home when off oxygen or improved, medically stable. DO Amita Swift Hospitalist Total Time Total Time Spent Total Time Spent (In Minutes): 60 Discharge Plan Discharge Items Patient Disposition: Home - Self-Care Reason For Visit: covid + as of low o2 Discharge Diagnosis: Acute respiratory failure Pneumonia secondary to COVID-19 virus Condition on Discharge: Good Activity: Resume your previous activity Non-emergency contact: Primary Care Provider Call non-emergency contact if: you have any medication questions, your symptoms worsen, your pain is not controlled, your pain is worsening, your pain is unusual for you and your pain is concerning for you Follow-up/Referrals: Alivia Courtney, [Primary Care Provider] - Diet: Regular Addtl Attending Provider Instructions: It is recommended that you follow-up with your primary care doctor within 1 week of discharge from the hospital to ensure you are still doing well after going home, and to order a repeat chest x-ray to ensure complete resolution of pneumonia in 4 to 6 weeks. You're being discharged on oxygen to use as needed for comfort. It is recommended that you continue home isolation for at least 10 days post symptom onset, coming off only when you are asymptomatic. Once off isolation please ensure you are compliant with all social distancing regulations and mask wearing when in the presence of others. Please reference the [facility] website for more information. It was a pleasure taking care of you! Please call if you have any questions or problems. You can reach a [facility] hospitalist on duty at [facility] 24 hours a day by calling [phone]. Take care of yourself. Flor Moraes DO [facility] Hospitalist Pending Studies at Discharge: No Stand-Alone Forms: My [facility] Medications and DC Order Prescriptions: New codeine-guaifenesin 10-100 mg/5 mL liquid 10 ml PO Q6H PRN (Reason: cough) Qty: 120 RF: 0 Discharge Orders: Discharge Order (Routine); Ordered 09/02/21 Ordered By: Flor Moraes Admission Data Admit Date/Time: 08/22/21 18:48 Attending Provider: Flor Moraes Admit Provider: Arcadio King Primary Care Provider: Alivia Courtney Other Providers: Brandon Matias ; Arcadio King ; Pasquale Solomon Other Interventions: Discharge Summary Assessment (RN) Last Done: 09/02/21 17:25
== END 2021-09-02 17:30 | disposition home or self-care (01) | DRG 177 ==
LOC: ED 14:39 → SUATTDRO 18:48 → EDINP 18:48 → 2S 08-23 22:14